=== PATIENT | female | born 1930 | race Caucasian/White ===

== ENCOUNTER 2017-03-17 15:16 | Inpatient (IN) ==
[2017-03-17] MEDS ORDERED: Piperacillin/Tazobactam 3.375 GM in Water for inj. (sterile) 20 ML IVP ONE (15:29)
[2017-03-17 16:42] LABS: Basophils % 0.6 %; Eosinophils # 0.1 K/mcL (0.0-0.6); Eosinophils % 1.5 %; Hematocrit 43.3 % (35.3-44.9); Hemoglobin 12.8 g/dL (11.5-15.4); Immature Granulocytes % 1.3 % (0-4); Lymphocytes # 2.5 K/mcL (0.6-4.6); Lymphocytes % 36.2 %; Mean Corpuscular HGB Conc 29.6 g/dL (31.6-35.5); Mean Corpuscular Hemoglobin 29.3 pg (28.0-33.3); Mean Corpuscular Volume 99.1 fL (83.0-100.0); Mean Platelet Volume 10.9 fL (9.4-12.4); Monocytes # 0.6 K/mcL (0.0-1.3); Neutrophils # 3.6 K/mcL (1.6-8.9); Platelet Count 241 K/mcL (140-400); Red Blood Count 4.37 M/mcL (3.82-4.97); Segmented Neutrophils % 52.4 %
[2017-03-17 17:07] LABS: Calcium 9.4 mg/dL (8.6-10.3); Potassium 3.9 mEq/L (3.5-5.1)
[2017-03-17 17:16] LABS: Bilirubin,Urine Negative (Negative); Blood,Urine Large (Negative); Clarity,Urine Turbid (Clear); Color,Urine Yellow (Yellow); Glucose,Urine (UA) Normal (Normal); Ketones,Urine Negative (Negative); Leukocyte Esterase,Urine Large (Negative); Nitrite,Urine Positive (Negative); Protein,Urine 100 mg/dL (Neg-Trace); Specific Gravity,Urine 1.028 (1.010-1.025); Urobilinogen,Urine Normal (Normal)
[2017-03-17 17:17] LABS: Bacteria,Urine Many per hpf (None-Few); Squamous Epithelial Cell,Urine Many per lpf (None-Few); WBC,Urine TNTC per hpf (0-3)
--- NOTE | 2017-03-17 17:23 | Emergency Department Note ---
Disposition Clinical Impression: HCAP (healthcare-associated pneumonia), Hypernatremia, Acute kidney injury, Elevated troponin Urinary tract infection Qualifiers: Urinary tract infection type: acute cystitis Hematuria presence: without hematuria Qualified Code(s): N30.00 - Acute cystitis without hematuria Altered mental status Qualifiers: Altered mental status type: unspecified Qualified Code(s): R41.82 - Altered mental status, unspecified Disposition: Admitted As Inpatient Condition: Fair General Adult HPI - General Chief complaint: ED Shortness of Breath/Dyspnea Stated complaint: PN, UTI, renal failure Time Seen by Provider: 03/17/17 15:29 Source: EMS Limitations: altered mental status, physical limitation Nursing Notes Reviewed: Yes Vital Signs Reviewed: Yes - History of Present Illness HPI Narrative: 87-year-old female past medical history of diabetes, dementia, COPD, coronary arterial disease. She was initially seen a couple [facility] due to increased fatigue and decreased mental status. However she is nonverbal at baseline that she was sleeping more than usual. She was sent to the emergency department because she has acute worsening of her creatinine along with hypernatremia and a urinary tract infection. The patient is unable to provide any past medical history due to significant dementia. Pain Scale: 0 Improves with: nothing Worsens with: nothing - Related Data Home Medications Medication Instructions Recorded Confirmed Acetaminophen [Tylenol] 650 mg PO Q6HR PRN 10/01/15 03/17/17 Aspirin 81 mg PO DAILY 10/01/15 03/17/17 Ranitidine HCl [Zantac] 150 mg PO BID 10/11/15 03/17/17 Bisacodyl [Dulcolax] 10 mg RC HS PRN 05/13/16 03/17/17 Fluticasone/Salmeterol [Advair 1 each IH BID 05/13/16 03/17/17 250-50 Diskus] Furosemide [Lasix] 40 mg PO DAILY 05/13/16 03/17/17 Insulin ASPART [Novolog] 12 unit SQ 1700 05/13/16 03/17/17 Insulin DETEMIR [Levemir] 20 unit SQ HS 05/13/16 03/17/17 Magnesium Hydroxide [Milk of 2,400 mg PO DAILY PRN 05/13/16 03/17/17 Magnesia] Acetaminophen [Tylenol] 650 mg PO 0700,1300,1900 01/19/18 01/19/18 Carvedilol [Coreg] 6.25 mg PO BIDWM 03/17/17 03/17/17 Insulin ASPART [NovoLOG] 15 unit SQ 0800,1200 03/17/17 03/17/17 Multivitamin [One Daily 1 each PO DAILY 03/17/17 03/17/17 Multivitamin] Oseltamivir [Tamiflu] 75 mg PO DAILY 03/17/17 03/17/17 Polyethylene Glycol 3350 [MiraLAX] 17 gm PO DAILY 03/17/17 03/17/17 Promethazine HCl 12.5 mg PO 1200 03/17/17 03/17/17 Previous Rx's Medication Instructions Recorded Atorvastatin [Lipitor] 10 mg PO HS tablet 01/28/15 Folic Acid 1 mg PO DAILY tablet 01/28/15 Allergies Allergy/AdvReac Type Severity Reaction Status Date / Time No Known Allergies Allergy Verified 03/17/17 15:18 Limitations: ROS unobtainable due to patients medical condition Past Medical History - Past Medical History Medical history: Reports: COPD, coronary artery disease, dementia, diabetes, hyperlipidemia, hypertension, other Surgical history: Reports: carotid endarterectomy, coronary bypass (CABG), other Psychiatric history: Reports: no psych history SAIL FINISHER HAND history: Reports: no SAIL FINISHER HAND history - Social History Smoking Status: Never smoker Smokeless Tobacco Status: No Alcohol use: Reports: none Drug use: Reports: none Physical Exam - General Limitations: altered mental status, physical limitation General appearance: lethargic - Head Head exam: atraumatic - Eye Eye exam: Present: normal appearance - ENT ENT exam: normal exam - Neck Neck exam: Present: normal inspection - Chest Chest inspection: Present: normal inspection - Respiratory Respiratory exam: Present: other (Course lung sounds bilaterally without respiratory distress. No accessory muscle use.) - Cardiovascular Cardiovascular exam: Present: regular rate, normal rhythm - Abdominal Exam Abdominal exam: Present: soft, Non-Tender - Extremities Exam Extremities exam: Present: normal inspection - Neurological Exam Neurological exam: Present: other (Sleepy but arousable. Nonverbal) - Skin Skin exam: Present: warm, dry Course Course Narrative: Her sodium level is elevated has been elevating over the last 2 days as seen by prior lab work. In addition her urine is concentrated so the elevated sodium is likely due to inadequate input. Her daughter also says that she has not been eating or drinking. She does not appear to be markedly hypovolemic as she is not tachycardic or hypotensive. Urinalysis shows urinary tract infection. Abdomen is soft and nontender. EKG shows normal sinus rhythm without any new EKG changes. However her troponin is elevated which is likely secondary to her acute renal failure however this will all need to be trended. She has received linezolid and Zosyn for likely healthcare associated pneumonia and urinary tract infection. She was also started on half-normal saline to help correct her renal failure and also provide some free water for her hypernatremia. She is requiring 2L NC O2. She is not on that at the nursing facility. culture from urinalysis shows sensitivity to zosyn. Chose zosyn to cover both HCAP and UTI, along with linezolid. No EKG changes with elevated troponin. Gave aspirin Vital Signs Temperature 98.1 F 03/17/17 15:28 Pulse Rate 73 03/17/17 15:28 Respiratory Rate 12 03/17/17 15:28 Blood Pressure 185/75 03/17/17 15:28 O2 Sat by Pulse Oximetry 98 03/17/17 15:28 Temperature 97.7 F 03/17/17 22:05 Pulse Rate 55 03/17/17 22:05 Respiratory Rate 15 03/17/17 22:05 Blood Pressure 182/68 03/17/17 22:05 O2 Sat by Pulse Oximetry 99 03/17/17 22:05 Oxygen Delivery Oxygen Delivery Nasal Cannula Medical Decision Making - Medical Records Medical records reviewed: Yes I reviewed the patient's medical records. - Lab Data Lab results reviewed: Yes I reviewed the patient's lab results. Result diagrams: 03/17/17 16:26 03/17/17 16:26 Lab Results 03/17/17 03/17/17 03/17/17 Range/Units 16:26 16:26 16:26 WBC 6.9 (4.3-11.1) K/mcL RBC 4.37 (3.82-4.97) M/mcL Hgb 12.8 (11.5-15.4) g/dL Hct 43.3 (35.3-44.9) % MCV 99.1 (83.0-100.0) fL MCH 29.3 (28.0-33.3) pg MCHC 29.6 L (31.6-35.5) g/dL RDW 14.0 (11.5-14.5) % Plt Count 241 (140-400) K/mcL MPV 10.9 (9.4-12.4) fL Immature Gran % 1.3 (0-4) % Seg Neutrophils % 52.4 % Lymphocytes % 36.2 % Monocytes % 8.0 % Eosinophils % 1.5 % Basophils % 0.6 % Neutrophils # 3.6 (1.6-8.9) K/mcL Lymphocytes # 2.5 (0.6-4.6) K/mcL Monocytes # 0.6 (0.0-1.3) K/mcL Eosinophils # 0.1 (0.0-0.6) K/mcL Basophils # 0.0 (0.0-0.2) K/mcL Sodium 158 H (136-145) mEq/L Potassium 3.9 (3.5-5.1) mEq/L Chloride 119 H (98-107) mEq/L Carbon Dioxide 32 H (23-29) mEq/L BUN 66 H (8-23) mg/dL Creatinine 2.09 H (0.60-1.20) mg/dL Est GFR ( Amer) 27 L (> 60) Est GFR (Non-Af Amer) 23 L (> 60) BUN/Creatinine Ratio 32 H (6-26) Glucose 118 H (70-105) mg/dL Calculated Osmolality 346 H (280-300) Lactic Acid 0.8 (0.5-2.2) mmol/L Calcium 9.4 (8.6-10.3) mg/dL Troponin I (< 0.04) ng/mL B-Natriuretic Peptide (Less than 100) pg/mL Urine Color (Yellow) Urine Clarity (Clear) Urine pH (5.0-8.0) pH Units Ur Specific [place] (1.010-1.025) Urine Protein (Neg-Trace) mg/dL Urine Glucose (UA) (Normal) mg/dL Urine Ketones (Negative) mg/dL Urine Blood (Negative) Urine Nitrite (Negative) Urine Bilirubin (Negative) Urine Urobilinogen (Normal) mg/dL Ur Leukocyte Esterase (Negative) Urine Microscopic RBC (0-3) per hpf Urine Microscopic WBC (0-3) per hpf Ur Squamous Epith Cells (None-Few) per lpf Urine Bacteria (None-Few) per hpf Ur Culture Indicated? (NO) Urine Osmolality (300-1090) mOsm/kg Urine Sodium mEq/L 03/17/17 03/17/17 03/17/17 Range/Units 16:26 16:26 16:37 WBC (4.3-11.1) K/mcL RBC (3.82-4.97) M/mcL Hgb (11.5-15.4) g/dL Hct (35.3-44.9) % MCV (83.0-100.0) fL MCH (28.0-33.3) pg MCHC (31.6-35.5) g/dL RDW (11.5-14.5) % Plt Count (140-400) K/mcL MPV (9.4-12.4) fL Immature Gran % (0-4) % Seg Neutrophils % % Lymphocytes % % Monocytes % % Eosinophils % % Basophils % % Neutrophils # (1.6-8.9) K/mcL Lymphocytes # (0.6-4.6) K/mcL Monocytes # (0.0-1.3) K/mcL Eosinophils # (0.0-0.6) K/mcL Basophils # (0.0-0.2) K/mcL Sodium (136-145) mEq/L Potassium (3.5-5.1) mEq/L Chloride (98-107) mEq/L Carbon Dioxide (23-29) mEq/L BUN (8-23) mg/dL Creatinine (0.60-1.20) mg/dL Est GFR ( Amer) (> 60) Est GFR (Non-Af Amer) (> 60) BUN/Creatinine Ratio (6-26) Glucose (70-105) mg/dL Calculated Osmolality (280-300) Lactic Acid (0.5-2.2) mmol/L Calcium (8.6-10.3) mg/dL Troponin I 0.16 H* (< 0.04) ng/mL B-Natriuretic Peptide 117 H (Less than 100) pg/mL Urine Color Yellow (Yellow) Urine Clarity Turbid A (Clear) Urine pH 5.0 (5.0-8.0) pH Units Ur Specific [place] 1.028 H (1.010-1.025) Urine Protein 100 H (Neg-Trace) mg/dL Urine Glucose (UA) Normal (Normal) mg/dL Urine Ketones Negative (Negative) mg/dL Urine Blood Large H (Negative) Urine Nitrite Positive A (Negative) Urine Bilirubin Negative (Negative) Urine Urobilinogen Normal (Normal) mg/dL Ur Leukocyte Esterase Large H (Negative) Urine Microscopic RBC 5-15 H (0-3) per hpf Urine Microscopic WBC TNTC H (0-3) per hpf Ur Squamous Epith Cells Many H (None-Few) per lpf Urine Bacteria Many H (None-Few) per hpf Ur Culture Indicated? NO. (NO) Urine Osmolality (300-1090) mOsm/kg Urine Sodium mEq/L 03/17/17 Range/Units 16:37 WBC (4.3-11.1) K/mcL RBC (3.82-4.97) M/mcL Hgb (11.5-15.4) g/dL Hct (35.3-44.9) % MCV (83.0-100.0) fL MCH (28.0-33.3) pg MCHC (31.6-35.5) g/dL RDW (11.5-14.5) % Plt Count (140-400) K/mcL MPV (9.4-12.4) fL Immature Gran % (0-4) % Seg Neutrophils % % Lymphocytes % % Monocytes % % Eosinophils % % Basophils % % Neutrophils # (1.6-8.9) K/mcL Lymphocytes # (0.6-4.6) K/mcL Monocytes # (0.0-1.3) K/mcL Eosinophils # (0.0-0.6) K/mcL Basophils # (0.0-0.2) K/mcL Sodium (136-145) mEq/L Potassium (3.5-5.1) mEq/L Chloride (98-107) mEq/L Carbon Dioxide (23-29) mEq/L BUN (8-23) mg/dL Creatinine (0.60-1.20) mg/dL Est GFR ( Amer) (> 60) Est GFR (Non-Af Amer) (> 60) BUN/Creatinine Ratio (6-26) Glucose (70-105) mg/dL Calculated Osmolality (280-300) Lactic Acid (0.5-2.2) mmol/L Calcium (8.6-10.3) mg/dL Troponin I (< 0.04) ng/mL B-Natriuretic Peptide (Less than 100) pg/mL Urine Color (Yellow) Urine Clarity (Clear) Urine pH (5.0-8.0) pH Units Ur Specific [place] (1.010-1.025) Urine Protein (Neg-Trace) mg/dL Urine Glucose (UA) (Normal) mg/dL Urine Ketones (Negative) mg/dL Urine Blood (Negative) Urine Nitrite (Negative) Urine Bilirubin (Negative) Urine Urobilinogen (Normal) mg/dL Ur Leukocyte Esterase (Negative) Urine Microscopic RBC (0-3) per hpf Urine Microscopic WBC (0-3) per hpf Ur Squamous Epith Cells (None-Few) per lpf Urine Bacteria (None-Few) per hpf Ur Culture Indicated? (NO) Urine Osmolality 531 (300-1090) mOsm/kg Urine Sodium 35.2 mEq/L - Radiology Data Radiology results reviewed: Yes I reviewed the patient's radiology results. - EKG Data EKG #1 EKG attestation: Yes I reviewed and interpreted this EKG. EKG shows normal: sinus rhythm Rate: normal Rhythm: NSR Interpretation: unchanged when compared to prior tracing (date), nonspecific ST- T wave changes Attestation Statement - Attestation Attestation: I, Hussain Ray, examined this patient and my medical decision-making was reviewed with the OIL RECOVERY OPERATOR/PA/Advanced Practice Nurse/Resident Physician. I agree with the documented findings, disposition and treatment plan as described except to the extent set forth below. 87-year-old female presents emergency Department with concerns of altered mental status, urinary tract infection and possible pneumonia. Patient is from a long-term facility who noticed that she was not as interactive as her baseline. Family states that this often happens with urinary tract infections. Laboratory evaluation patient has hypernatremia which is likely secondary to volume depletion. Patient has a urinary tract infection as well as a possible pneumonia. She was started on Zosyn as well as Linezolid for treatment of pneumonia and UTI. Patient will be admitted to the hospital for further care and evaluation.
[2017-03-17] MEDS ORDERED: Aspirin 325 MG TABLET PO ONE (17:57)
[2017-03-17 18:18] LABS: Sodium, Urine 35.2 mEq/L
[2017-03-17] MEDS ORDERED: *HR* Labetalol 100 MG/20 ML MDV IVP ONE (19:45)
[2017-03-18] MEDS ORDERED: Naloxone 0.4 MG/ML INJ IVP PRN (05:02)
[2017-03-18 05:31] LABS: Basophils % 0.5 %; Eosinophils # 0.1 K/mcL (0.0-0.6); Hematocrit 35.7 % (35.3-44.9); Hemoglobin 10.8 g/dL (11.5-15.4); Immature Granulocytes % 1.2 % (0-4); Lymphocytes # 2.3 K/mcL (0.6-4.6); Mean Corpuscular HGB Conc 30.3 g/dL (31.6-35.5); Mean Corpuscular Hemoglobin 29.9 pg (28.0-33.3); Mean Corpuscular Volume 98.9 fL (83.0-100.0); Monocytes # 0.6 K/mcL (0.0-1.3); Monocytes % 8.5 %; Neutrophils # 3.4 K/mcL (1.6-8.9); Platelet Count 190 K/mcL (140-400); Red Blood Count 3.61 M/mcL (3.82-4.97); Red Cell Distribution Width 14.1 % (11.5-14.5); Segmented Neutrophils % 52.8 %
[2017-03-18 05:45] LABS: Albumin 3.3 g/dL (3.5-5.7); Albumin/Globulin Ratio 1.1 (1.1-2.2); Bilirubin,Total 0.3 mg/dL (0.3-1.0); Calcium 8.4 mg/dL (8.6-10.3); Globulin 3.1 g/dL (2.4-3.5); Potassium 4.2 mEq/L (3.5-5.1); Total Protein 6.4 g/dL (6.4-8.9)
[2017-03-18] MEDS ORDERED: *HR* Morphine 2 MG/ML SYRINGE IVP PRN (08:20)
[2017-03-18] MEDS ORDERED: Piperacillin/Tazobactam 3.375 GM/200 ML BAG IVPB SCH (09:00)
--- NOTE | 2017-03-18 09:09 | Internal Med History&Physical ---
Date of Encounter: 03/18/17 Time of Encounter: 09:07 Assessment and Plan (1) Metabolic encephalopathy Current visit: Yes Status: Acute Due to hypernatremia and underlying infections in the setting of proable underlying dementia (2) UTI (urinary tract infection) Current visit: Yes Status: Acute Has recent urine culture phone E. coli sensitive to Zosyn which will be started on Qualifiers: Qualified Code(s): N39.0 - Urinary tract infection, site not specified; R31.9 - Hematuria, unspecified; R31.9 - Hematuria, unspecified (3) Hypernatremia Current visit: Yes Status: Acute Hypernatremia due to decreased free water intake. Patient was started yesterday on half normal saline. Sodium is 153 from 158 after 12 hours. We will switch fluids to D5 water. Continue checking sodium every 6 hours. Once the patient passes swallow eval will give Freewater 200 mL every 8 hours (4) HCAP (healthcare-associated pneumonia) Current visit: Yes Status: Acute Likely due to aspiration. Start Zosyn. patient is afebrile without leukocytosis. She is not hypotensive. with worsening of her hemodynamics we will add vancomycin. Otherwise await cultures (5) NATHALY (acute kidney injury) Current visit: Yes Status: Acute Improving. Monitor urine output Internal Medicine - H&P: HPI Chief complaint: Altered mental status History of present illness: Ms. Howard is a 87 year old female NH patient was initially seen a couple days ago by the physician at the senior living due to lethargy and altered mental status and that she was sleeping more than usual. She was sent to the emergency department because she has acute worsening of her creatinine along with hypernatremia and a urinary tract infection. The patient is unable to provide any further history because of advanced dementia. Past Med Surg Social Fam HX - Past Medical History Medical history: COPD, coronary artery disease, dementia, diabetes, hyperlipidemia, hypertension, other Psychiatric history: no psych history - Past Surgical History Surgical History: carotid endarterectomy, coronary bypass (CABG), other - Social History Smoking Status: Never smoker Smokeless Tobacco Status: No Alcohol use: none Drug use: none - Family History Mother Hx Family Cancer: Yes Internal Medicine - H&P: Meds Atorvastatin [Lipitor] 10 mg PO HS tablet 01/28/15 [Rx] Folic Acid 1 mg PO DAILY tablet 01/28/15 [Rx] Acetaminophen [Tylenol] 650 mg PO Q6HR PRN 10/01/15 [History] Aspirin 81 mg PO DAILY 10/01/15 [History] Ranitidine HCl [Zantac] 150 mg PO BID 10/11/15 [History] Bisacodyl [Dulcolax] 10 mg RC HS PRN 05/13/16 [History] Fluticasone/Salmeterol [Advair 250-50 Diskus] 1 each IH BID 05/13/16 [History] Furosemide [Lasix] 40 mg PO DAILY 05/13/16 [History] Insulin ASPART [Novolog] 12 unit SQ 1700 05/13/16 [History] Insulin DETEMIR [Levemir] 20 unit SQ HS 05/13/16 [History] Magnesium Hydroxide [Milk of Magnesia] 2,400 mg PO DAILY PRN 05/13/16 [History] Acetaminophen [Tylenol] 650 mg PO 0700,1300,1900 03/17/17 [History] Carvedilol [Coreg] 6.25 mg PO BIDWM 03/17/17 [History] Insulin ASPART [NovoLOG] 15 unit SQ 0800,1200 03/17/17 [History] Multivitamin [One Daily Multivitamin] 1 each PO DAILY 03/17/17 [History] Oseltamivir [Tamiflu] 75 mg PO DAILY 03/17/17 [History] Polyethylene Glycol 3350 [MiraLAX] 17 gm PO DAILY 03/17/17 [History] Promethazine HCl 12.5 mg PO 1200 03/17/17 [History] 3 Allergy/AdvReac Type Severity Reaction Status Date / Time No Known Allergies Allergy Verified 03/17/17 15:18 All Systems PM: A 10-system review of systems was performed and is negative for pertinent findings except as documented above in the HPI. Review of systems: 10 point review of systems is negative except for HPI - Constitutional Vitals: Temp Pulse Resp BP Pulse Ox 97.3 F L 63 15 187/57 99 03/18/17 07:22 03/18/17 07:22 03/18/17 07:22 03/18/17 07:22 03/18/17 07:22 Exam: Gen.: patient is alert non communicative Cardiac: normal S1 S2 no additional sounds are murmurs. Chest: decreased air entry in bases Abdomen: soft nontender nondistended. Lower extremity no swelling Neuro: patient uncooperative with exam Internal Med - H&P Results - Labs CBC & Chem 7: 03/18/17 05:24 03/18/17 05:24 Labs: Short CBC 03/18/17 Range/Units 05:24 WBC 6.5 (4.3-11.1) K/mcL Hgb 10.8 L D (11.5-15.4) g/dL Hct 35.7 (35.3-44.9) % Plt Count 190 (140-400) K/mcL Neutrophils # 3.4 (1.6-8.9) K/mcL BMP 03/18/17 05:24 Sodium 153 H Potassium 4.2 Chloride 118 H Carbon Dioxide 30 H BUN 59 H Creatinine 1.86 H Glucose 167 H Calcium 8.4 L Cardiac Enzymes 03/18/17 03/18/17 Range/Units 00:06 05:24 Troponin I 0.14 H* 0.15 H* (< 0.04) ng/mL Liver Function 03/18/17 Range/Units 05:24 Total Bilirubin 0.3 (0.3-1.0) mg/dL AST 14 (13-39) Units/L ALT 7 (7-52) Units/L Alkaline Phosphatase 60 (34-104) Units/L Albumin 3.3 L (3.5-5.7) g/dL
[2017-03-18] MEDS: D5% in Water 1,000 ML IVC SCH ×2 (09:55→18:16)
[2017-03-18] MEDS: Aspirin 81 MG TAB.CHEW PO SCH (09:55)
[2017-03-18] MEDS ORDERED: D5% in Water 1,000 ML IVC PRN (11:02)
[2017-03-18] MEDS ORDERED: *HR* Dextrose 50 % in Water (Syg) 50 ML SYRINGE IVP PRN (11:02)
[2017-03-18] MEDS ORDERED: Dextrose Gel 15 GM/37.5 ML TUBE PO PRN ×2 (11:02)
[2017-03-18] MEDS: Insulin LISPRO 300 UNITS/3 ML VIAL SQ SCH ×3 (12:44→21:19)
[2017-03-18] MEDS ORDERED: *HR* LORazepam 2 MG/ML VIAL IM STA (13:07)
[2017-03-18] MEDS: *HR* Heparin 5,000 UNIT/ML VIAL SQ SCH ×2 (13:16→21:23)
[2017-03-18] MEDS ORDERED: Furosemide 40 MG/4 ML VIAL IVP ONE (13:27)
[2017-03-18 14:58] LABS: Adenovirus Not Detected (Not Detect); Bordetella Pertussis Not Detected (Not Detect); Chlamydophila pneumoniae Not Detected (Not Detect); Coronavirus 229E Not Detected (Not Detect); Coronavirus HKU1 Not Detected (Not Detect); Coronavirus NL63 Not Detected (Not Detect); Coronavirus OC43 Not Detected (Not Detect); Human Metapneumovirus Not Detected (Not Detect); Human Rhinovirus/Enterovirus Not Detected (Not Detect); Influenza A Subtype 2009 H1 Not Detected (Not Detect); Influenza A Untypeable Not Detected (Not Detect); Influenza B Not Detected (Not Detect); Mycoplasma pneumoniae Not Detected (Not Detect); Parainfluenza Virus 1 Not Detected (Not Detect); Parainfluenza Virus 2 Not Detected (Not Detect); Parainfluenza Virus 3 Not Detected (Not Detect); Parainfluenza Virus 4 Not Detected (Not Detect); Respiratory Syncytial Virus Not Detected (Not Detect)
[2017-03-18] MEDS ORDERED: *HR* LORazepam 2 MG/ML VIAL IVP PRN (17:14)
[2017-03-18] MEDS: Famotidine 20 MG/2 ML VIAL IVP SCH (18:15)
[2017-03-18] MEDS: Piperacillin/Tazobactam 3.375 GM/200 ML BAG IVPB SCH (21:06)
[2017-03-19] MEDS: D5% in Water 1,000 ML IVC SCH (02:12)
[2017-03-19 03:46] LABS: Basophils # 0.1 K/mcL (0.0-0.2); Basophils % 0.6 %; Eosinophils # 0.2 K/mcL (0.0-0.6); Eosinophils % 2.2 %; Hematocrit 37.3 % (35.3-44.9); Hemoglobin 11.4 g/dL (11.5-15.4); Immature Granulocytes % 3.6 % (0-4); Lymphocytes % 35.6 %; Mean Corpuscular HGB Conc 30.6 g/dL (31.6-35.5); Mean Corpuscular Hemoglobin 29.2 pg (28.0-33.3); Mean Corpuscular Volume 95.4 fL (83.0-100.0); Mean Platelet Volume 11.1 fL (9.4-12.4); Monocytes # 0.7 K/mcL (0.0-1.3); Monocytes % 7.9 %; Neutrophils # 4.2 K/mcL (1.6-8.9); Platelet Count 221 K/mcL (140-400); Red Blood Count 3.91 M/mcL (3.82-4.97); Red Cell Distribution Width 14.1 % (11.5-14.5); Segmented Neutrophils % 50.1 %
[2017-03-19 04:09] LABS: Calcium 7.8 mg/dL (8.6-10.3); Magnesium 1.8 mg/dL (1.6-2.6); Potassium 4.2 mEq/L (3.5-5.1)
--- NOTE | 2017-03-19 06:20 | Event Note ---
<Frank Hernandez - Last Filed: 03/19/17 06:47> Date of Encounter: 03/19/17 Time of Encounter: 06:16 I was called by the floor nurse about this patient due to increased somnolence and difficulty to arouse. The patient was admitted with metabolic encephalopathy with UTI and is flu positive. The nurse said that it's been worsening throughout the night, and now she is very challenging to arouse altogether. She awakens only to painful stimuli, and is oriented to self but not place or time. She stays alert long enough to answer one question and then becomes unconscious again. Blood glucose was 283, vitals stable, got stat VBG + BMP. Stat EKG showed no acute changes. I also ordered a head CT as the patient has not had a scan in two years and is encephalopathic. VBG demonstrates pH 7.2 + pCO2 91. Order for BiPAP is placed. CT Pending. Pertinent info is signed out to the day team for urgent follow up. <Sandip Garcia - Last Filed: 03/19/17 19:09> Date of Encounter: 03/19/[address] Hernandez his assessment, plan, lab results, and Bipap plans. I requested he order another ABG in 1 -2 hours after BiPap . I agree with his plan.
[2017-03-19 06:37] LABS: VBG HCO3 36 mEq/L (21-27); VBG PCO2 91 mmHg (41-51); VBG PO2 47 mmHg (25-50)
[2017-03-19 06:41] LABS: Calcium 8.1 mg/dL (8.6-10.3); Potassium 3.7 mEq/L (3.5-5.1)
[2017-03-19] MEDS: Insulin LISPRO 300 UNITS/3 ML VIAL SQ SCH ×4 (07:34→21:25)
[2017-03-19] MEDS: Piperacillin/Tazobactam 3.375 GM/200 ML BAG IVPB SCH (07:34)
[2017-03-19] MEDS: Famotidine 20 MG/2 ML VIAL IVP SCH ×2 (07:35→16:57)
[2017-03-19] MEDS: *HR* Heparin 5,000 UNIT/ML VIAL SQ SCH ×3 (07:35→21:33)
[2017-03-19] MEDS: Aspirin 81 MG TAB.CHEW PO SCH (07:48)
[2017-03-19 10:10] LABS: VBG HCO3 32 mEq/L (21-27); VBG PCO2 58 mmHg (41-51); VBG PH 7.35 pH Units (7.32-7.42); VBG PO2 148 mmHg (25-50)
--- NOTE | 2017-03-19 12:22 | Internal Med Progress Note ---
<Rosy Slaughter - Last Filed: 03/19/17 16:09> Date of Encounter: 03/19/17 Time of Encounter: 12:00 - Assessment and plan (1) HCAP (healthcare-associated pneumonia) Current Visit: Yes Status: Acute Assessment and plan: Healthcare associated pneumonia. Patient presented from [facility]. CXR demonstrated small left pleural effusion, mild diffuse bilateral interstitial opacities that may be atypical pneumonia or edema WBC WNL patient reports shortness of breath and productive cough Stop Zosyn start azithromycin and Rocephin supplemental oxygen is needed (2) UTI (urinary tract infection) Current Visit: Yes Status: Acute Assessment and plan: Urine culture 03/14/2017 grew E. coli sensitive to ceftriaxone Urinalysis: nitrite and esterase positive patient denies dysuria and hematuria plan start Rocephin day 1 Zosyn stopped Qualifiers: Urinary tract infection type: acute cystitis Hematuria presence: without hematuria Qualified Code(s): N30.00 - Acute cystitis without hematuria (3) Influenza A Current Visit: Yes Status: Acute Assessment and plan: The patient is a resident of [facility] and was prophylactically started on Tamiflu at [facility] due to multiple residents in her [place] testing positive for influenza. Influenza A positive Continue Tamiflu supplemental oxygen is needed (4) Metabolic encephalopathy Current Visit: Yes Status: Acute Assessment and plan: Patient is now alert and oriented x2 (person in place) Daughter is at bedside and stated that she is normally able to converse more. Patient admitted with metabolic encephalopathy thought to be induced by UTI, pneumonia, and hypernatremia superimposed on baseline dementia CXR demonstrated small left pleural effusion, mild diffuse bilateral interstitial opacities that may be atypical pneumonia or edema WBC WNL sodium was 158 [address] demonstrated no acute cranial abnormality blood cultures are negative to date Urinalysis: nitrite and esterase positive see plan above (5) Acute kidney injury Current Visit: Yes Status: Acute Assessment and plan: Patient presented with NATHALY most likely due to dehydration from decreased oral intake. Patient has CKD creatinine baseline 1.3- 1.5 Creatinine improved 1.58 Avoid nephrotoxic agents monitor creatinine patients received IVF encourage oral hydration (6) COPD (chronic obstructive pulmonary disease) Current Visit: No Status: Chronic Assessment and plan: History of COPD. Not in exacerbation 98% oxygen saturation on 4 L continue home Symbicort supplemental oxygen is needed Duonebs every 4 hours Qualifiers: COPD type: unspecified COPD Qualified Code(s): J44.9 - Chronic obstructive pulmonary disease, unspecified (7) Diabetes Current Visit: No Status: Acute Assessment and plan: History of diabetes taking insulin glucose 295 Levemir 10 units HS low-dose sliding scale insulin HS medium dose sliding scale insulin TIDAC glucose checks ACHS Qualifiers: Diabetes mellitus type: type 2 Diabetes mellitus complication status: without complication Diabetes mellitus penitentiary insulin use: with dedicated intermodal truck driver use Qualified Code(s): E11.9 - Type 2 diabetes mellitus without complications ; Z79.4 - emt intermediate (current) use of insulin; Z79.4 - emt intermediate (current) use of insulin; Z79.4 - emt intermediate (current) use of insulin; Z79.4 - retirement ( current) use of insulin (8) HTN (hypertension) Current Visit: No Status: Acute Assessment and plan: History of hypertension. BP 158/75 RALES on physical exam continue Coreg continue Lasix 20mg Qualifiers: Hypertension type: essential hypertension Qualified Code(s): I10 - Essential (primary) hypertension (9) Dementia Current Visit: No Status: Acute Assessment and plan: According to her family she has Dementia not currently taking medication for it. Ashlee reports that at baseline patient is able to recognize family and have conversations however she does forget each visit at the next visit. Qualifiers: Dementia type: unspecified type Dementia behavioral disturbance: without behavioral disturbance Qualified Code(s): F03.90 - Unspecified dementia without behavioral disturbance (10) DVT prophylaxis Current Visit: No Status: Acute Assessment and plan: Heparin sq - Subjective Interval history: She is alert and oriented x2 (person and place), her daughter and son in law is at bedside. The patient denies shortness of breathe, chest pain, dysuria, hematuria. She admits productive cough. - Constitutional Vitals: Temp Pulse Resp BP Pulse Ox 98.2 F 88 21 158/75 98 03/19/17 11:00 03/19/17 11:00 03/19/17 11:00 03/19/17 11:00 03/19/17 11:00 Exam: Gen.: Vitals noted. No acute distress. AAOx2 HEENT: oropharynx clear, Normocephalic, atraumatic Neck: Supple. No adenopathy. Cardiac: RRR, no murmur, +S1/S2 Pulmonary: CTA bilaterally, minimal apical wheezes, positive bilateral rales , equal chest expansion Abdomen: soft, nontender, Bowel sounds noted, no guarding MSK: ROM intact, no joint swelling noted Extremities: no BLE edema, nontender calf, no cyanosis or clubbing Neuro: A&Ox2 r Internal Medicine: Result - Labs CBC & Chem 7: 03/19/17 03:38 03/19/17 06:21 Labs: Short CBC 03/19/17 Range/Units 03:38 WBC 8.4 (4.3-11.1) K/mcL Hgb 11.4 L (11.5-15.4) g/dL Hct 37.3 (35.3-44.9) % Plt Count 221 (140-400) K/mcL Neutrophils # 4.2 (1.6-8.9) K/mcL BMP 03/18/17 03/18/17 03/19/17 15:15 20:23 03:38 Sodium 150 H 147 H 144 Potassium 4.2 Chloride 106 Carbon Dioxide 26 BUN 42 H Creatinine 1.53 H Glucose 292 H Calcium 7.8 L 03/19/17 06:21 Sodium 145 Potassium 3.7 Chloride 107 Carbon Dioxide 33 H BUN 39 H Creatinine 1.58 H Glucose 295 H Calcium 8.1 L - Impressions Impressions Head CT 03/19/17 06:11 IMPRESSION: No evidence of acute intracranial abnormality. D/ / 03/19/2017 08:33:59 Tristin Gaxiola MD / Arabella Toussaint Interpreting Provider: Tristin Gaxiola MD Consult Discharge Plan - Plan Referrals: NONE,PCP [Primary Care Provider] - <Ady Caceres - Last Filed: 03/20/17 22:17> Date of Encounter: 03/19/17 - Constitutional Vitals: Temp Pulse Resp BP Pulse Ox 98.6 F 97 22 151/60 98 03/20/17 21:12 03/20/17 21:12 03/20/17 21:12 03/20/17 21:12 03/20/17 21:12 Internal Medicine: Result - Labs CBC & Chem 7: 03/20/17 06:03 03/20/17 06:03 Labs: Short CBC 03/20/17 Range/Units 06:03 WBC 7.6 (4.3-11.1) K/mcL Hgb 12.8 (11.5-15.4) g/dL Hct 39.4 (35.3-44.9) % Plt Count 261 (140-400) K/mcL Neutrophils # 4.6 (1.6-8.9) K/mcL BMP 03/20/17 06:03 Sodium 148 H Potassium 3.4 L Chloride 108 H Carbon Dioxide 28 BUN 28 H Creatinine 1.31 H Glucose 188 H Calcium 8.7 - Impressions Impressions Head CT 03/19/17 06:11 IMPRESSION: No evidence of acute intracranial abnormality. D/ / 03/19/2017 08:33:59 Tristin Gaxiola MD / Arabella Toussaint Interpreting Provider: Tristin Gaxiola MD - Attending Attestation I conducted a face to face diagnostic evaluation of this patient and my medical decision-making was reviewed with the Resident Physician, Dr Rosy Slaughter. I agree with the documented findings, disposition and treatment plan as described except to the extent set forth below: On exam the patient is asleep, arousable, confused. Heart is regular. Lungs are diminished throughout. Switch to ceftriaxone and azithromycin. Continue with Tamiflu. Ady Caceres MD
[2017-03-19] MEDS ORDERED: Ketorolac 15 MG/ML VIAL IM PRN (12:37)
[2017-03-19] MEDS: cefTRIAXone 1,000 MG in Water for inj. (sterile) 20 ML 10 ML IVP SCH (13:11)
[2017-03-19] MEDS: Azithromycin 500 MG in D5% in Water 250 ML IVPB SCH (13:20)
[2017-03-19] MEDS ORDERED: Ketorolac 15 MG/ML VIAL IVP PRN (13:37)
[2017-03-19] MEDS: Ipratropium/Albuterol Neb 3 ML IH SCH ×3 (16:24→23:47)
[2017-03-19] MEDS: Budesonide/Formoterol 80/4.5 MDI IH SCH (19:53)
[2017-03-19] MEDS: Insulin DETEMIR 100 UNIT/ML X5UNITS SQ SCH (21:33)
[2017-03-20] MEDS: Ipratropium/Albuterol Neb 3 ML IH SCH ×6 (03:14→23:40)
[2017-03-20 06:24] LABS: Basophils # 0.1 K/mcL (0.0-0.2); Basophils % 0.9 %; Eosinophils # 0.2 K/mcL (0.0-0.6); Hematocrit 39.4 % (35.3-44.9); Hemoglobin 12.8 g/dL (11.5-15.4); Immature Granulocytes % 2.6 % (0-4); Lymphocytes # 1.9 K/mcL (0.6-4.6); Lymphocytes % 25.2 %; Mean Corpuscular HGB Conc 32.5 g/dL (31.6-35.5); Mean Corpuscular Hemoglobin 30.1 pg (28.0-33.3); Mean Corpuscular Volume 92.7 fL (83.0-100.0); Monocytes # 0.6 K/mcL (0.0-1.3); Monocytes % 7.8 %; Neutrophils # 4.6 K/mcL (1.6-8.9); Platelet Count 261 K/mcL (140-400); Red Blood Count 4.25 M/mcL (3.82-4.97); Red Cell Distribution Width 13.9 % (11.5-14.5); Segmented Neutrophils % 60.5 %
[2017-03-20 06:47] LABS: Calcium 8.7 mg/dL (8.6-10.3); Potassium 3.4 mEq/L (3.5-5.1)
[2017-03-20] MEDS: Famotidine 20 MG/2 ML VIAL IVP SCH ×2 (07:23→17:41)
[2017-03-20] MEDS: *HR* Heparin 5,000 UNIT/ML VIAL SQ SCH ×3 (07:26→22:05)
[2017-03-20] MEDS: Budesonide/Formoterol 80/4.5 MDI IH SCH ×2 (07:46→20:07)
--- NOTE | 2017-03-20 08:24 | Internal Med Progress Note ---
Addendum entered and electronically signed by Rosy Slaughter DO 03/20/17 13:41: Patient not eating today. So she will not take her Coreg. Will give her Metoprolol 5mg IVq6hr. Holding Coreg today and re-start tomorrow. Original Note: <Rosy Slaughter - Last Filed: 03/20/17 13:09> Date of Encounter: 03/20/17 Time of Encounter: 08:20 - Assessment and plan (1) HCAP (healthcare-associated pneumonia) Current Visit: Yes Status: Acute Assessment and plan: Healthcare associated pneumonia. Patient presented from [facility]. CXR demonstrated small left pleural effusion, mild diffuse bilateral interstitial opacities that may be atypical pneumonia or edema WBC WNL 94% on 2L possible D/C tomorrow Patient on azithromycin and Rocephin. Supplemental oxygen as needed (2) UTI (urinary tract infection) Current Visit: Yes Status: Acute Assessment and plan: Urine culture 03/14/2017 grew E. coli sensitive to ceftriaxone Urinalysis: nitrite and esterase positive Patient on Rocephin Qualifiers: Urinary tract infection type: acute cystitis Hematuria presence: without hematuria Qualified Code(s): N30.00 - Acute cystitis without hematuria (3) Influenza A Current Visit: Yes Status: Acute Assessment and plan: The patient is a resident of [facility] and was prophylactically started on Tamiflu at [facility] due to multiple residents in her [place] testing positive for influenza. Influenza A positive Continue Tamiflu supplemental oxygen is needed (4) Metabolic encephalopathy Current Visit: Yes Status: Acute Assessment and plan: Patient is A&O x0 this morning. Patient admitted with metabolic encephalopathy thought to be induced by UTI, pneumonia, and hypernatremia superimposed on baseline dementia CXR demonstrated small left pleural effusion, mild diffuse bilateral interstitial opacities that may be atypical pneumonia or edema WBC WNL sodium was 158 on admission, and now [address] demonstrated no acute cranial abnormality blood cultures are negative to date Urinalysis: nitrite and esterase positive (5) Acute kidney injury Current Visit: Yes Status: Acute Assessment and plan: Patient presented with NATHALY most likely due to dehydration from decreased oral intake. Patient has CKD creatinine baseline 1.3- 1.5 Creatinine improved 1.31 Avoid nephrotoxic agents monitor creatinine patients received IVF encourage oral hydration (6) COPD (chronic obstructive pulmonary disease) Current Visit: No Status: Chronic Assessment and plan: History of COPD. Not in exacerbation 98% oxygen saturation on 4 L continue home Symbicort supplemental oxygen is needed Duonebs every 4 hours Qualifiers: COPD type: unspecified COPD Qualified Code(s): J44.9 - Chronic obstructive pulmonary disease, unspecified (7) Diabetes Current Visit: No Status: Chronic Assessment and plan: History of diabetes taking insulin glucose 188 Levemir 10 units HS low-dose sliding scale insulin HS low dose sliding scale insulin TIDAC glucose checks ACHS Qualifiers: Diabetes mellitus type: type 2 Diabetes mellitus complication status: without complication Diabetes mellitus pediatric nurse insulin use: with pediatric nurse use Qualified Code(s): E11.9 - Type 2 diabetes mellitus without complications ; Z79.4 - care home (current) use of insulin; Z79.4 - truck and transport mechanic (current) use of insulin; Z79.4 - care home (current) use of insulin; Z79.4 - truck and transport mechanic ( current) use of insulin (8) HTN (hypertension) Current Visit: No Status: Chronic Assessment and plan: History of hypertension. BP 172/88 continue Coreg continue Lasix 20mg Qualifiers: Hypertension type: essential hypertension Qualified Code(s): I10 - Essential (primary) hypertension (9) Dementia Current Visit: No Status: Chronic Assessment and plan: Patient is currently A&O x0, unable to evaluate dementia due to AMS According to her family she has Dementia not currently taking medication for it. Ashlee reports that at baseline patient is able to recognize family and have conversations however she does forget each visit at the next visit. Patient resides in a group home. PT/OT speech recommend pureed foods when patient is wide awake Qualifiers: Dementia type: unspecified type Dementia behavioral disturbance: without behavioral disturbance Qualified Code(s): F03.90 - Unspecified dementia without behavioral disturbance (10) DVT prophylaxis Current Visit: No Status: Acute Assessment and plan: Heparin sq - Subjective Interval history: This morning, patient is laying in bed and is largely unresponsive to verbal stimuli. She does push away when sternal rub is given. Patient will not open her eyes and clamps them down when attempts are made to open them. She does periodically make unintelligible vocalizations. When asked multiple times if she was in any pain, she did eventually respond with a sound that sounded like "no." Otherwise, was not able to illicit any information out of patient. There is currently no family at bedside. - Constitutional Vitals: Temp Pulse Resp BP Pulse Ox 98.3 F 111 18 172/88 92 03/20/17 07:28 03/20/17 07:28 03/20/17 07:53 03/20/17 07:28 03/20/17 07:53 General appearance: Present: A&O X 0. Absent: cooperative, answers questions appropriately - Head Head exam: Present: normal inspection - Respiratory Respiratory exam: Present: CTAB Additional comments: Unable to auscultate lungs fully due to noncooperation by patient - Cardiovascular Cardiovascular exam: Present: RRR - GI/Abdominal GI/Abdominal exam: Present: normal bowel sounds, soft. Absent: distended, firm - Neurological Exam Neurological exam: Present: altered (Patient is A&O x0. Unable to respond to verbal stimuli. Responds to sternal rub by swatting at hand. Unwilling to open her eyes.) Internal Medicine: Result - Labs CBC & Chem 7: 03/20/17 06:03 03/20/17 06:03 Labs: Short CBC 03/20/17 Range/Units 06:03 WBC 7.6 (4.3-11.1) K/mcL Hgb 12.8 (11.5-15.4) g/dL Hct 39.4 (35.3-44.9) % Plt Count 261 (140-400) K/mcL Neutrophils # 4.6 (1.6-8.9) K/mcL BMP 03/20/17 06:03 Sodium 148 H Potassium 3.4 L Chloride 108 H Carbon Dioxide 28 BUN 28 H Creatinine 1.31 H Glucose 188 H Calcium 8.7 - Impressions Impressions Head CT 03/19/17 06:11 IMPRESSION: No evidence of acute intracranial abnormality. D/ / 03/19/2017 08:33:59 Tristin Gaxiola MD / Arabella Toussaint Interpreting Provider: Tristin Gaxiola MD Consult Discharge Plan - Plan Referrals: NONE,PCP [Primary Care Provider] - <Ady Caceres - Last Filed: 03/20/17 22:18> Date of Encounter: 03/20/17 - Constitutional Vitals: Temp Pulse Resp BP Pulse Ox 98.6 F 97 22 151/60 98 03/20/17 21:12 03/20/17 21:12 03/20/17 21:12 03/20/17 21:12 03/20/17 21:12 Internal Medicine: Result - Labs CBC & Chem 7: 03/20/17 06:03 03/20/17 06:03 Labs: Short CBC 03/20/17 Range/Units 06:03 WBC 7.6 (4.3-11.1) K/mcL Hgb 12.8 (11.5-15.4) g/dL Hct 39.4 (35.3-44.9) % Plt Count 261 (140-400) K/mcL Neutrophils # 4.6 (1.6-8.9) K/mcL BMP 03/20/17 06:03 Sodium 148 H Potassium 3.4 L Chloride 108 H Carbon Dioxide 28 BUN 28 H Creatinine 1.31 H Glucose 188 H Calcium 8.7 - Impressions Impressions Head CT 03/19/17 06:11 IMPRESSION: No evidence of acute intracranial abnormality. D/ / 03/19/2017 08:33:59 Tristin Gaxiola MD / Arabella Toussaint Interpreting Provider: Tristin Gaxiola MD - Attending Attestation I conducted a face to face diagnostic evaluation of this patient and my medical decision-making was reviewed with the Resident Physician, Dr Rosy Slaughter. I agree with the documented findings, disposition and treatment plan as described except to the extent set forth below: Continue with IV antibiotics. Continue with Tamiflu. Oxygen by nasal cannula. PT OT. Discharge planning to subacute rehabilitation. Ady Caceres MD
[2017-03-20] MEDS ORDERED: Potassium Chloride 20 MEQ, Lidocaine 1% 2 ML in D5% in Water 250 ML IVPB ONE (08:27)
[2017-03-20] MEDS: cefTRIAXone 1,000 MG in Water for inj. (sterile) 20 ML 10 ML IVP SCH (08:38)
[2017-03-20] MEDS: Insulin LISPRO 300 UNITS/3 ML VIAL SQ SCH ×4 (08:38→22:08)
[2017-03-20] MEDS: Aspirin 81 MG TAB.CHEW PO SCH (08:46)
[2017-03-20] MEDS: 0.9 % Sodium Chloride 1,000 ML IVC SCH (08:46)
[2017-03-20] MEDS: Oseltamivir Phosphate 30 MG CAPSULE PO SCH (08:50)
[2017-03-20] MEDS ORDERED: Furosemide 20 MG/2 ML VIAL IVP SCH (09:00)
[2017-03-20] MEDS ORDERED: *HR* Metoprolol 5 MG/5 ML VIAL IVP SCH ×2 (12:00→18:00)
[2017-03-20] MEDS: Azithromycin 500 MG in D5% in Water 250 ML IVPB SCH (13:17)
[2017-03-20] MEDS ORDERED: *HR* Metoprolol 5 MG/5 ML VIAL IVP ONE (13:40)
[2017-03-20] MEDS: *HR* Metoprolol 5 MG/5 ML VIAL IVP SCH (17:41)
[2017-03-20] MEDS: Insulin DETEMIR 100 UNIT/ML X5UNITS SQ SCH (22:04)
[2017-03-21] MEDS: *HR* Metoprolol 5 MG/5 ML VIAL IVP SCH ×3 (00:21→13:03)
[2017-03-21] MEDS: 0.9 % Sodium Chloride 1,000 ML IVC SCH ×2 (00:22→13:00)
[2017-03-21] MEDS: Ipratropium/Albuterol Neb 3 ML IH SCH ×6 (04:46→23:47)
[2017-03-21] MEDS: Famotidine 20 MG/2 ML VIAL IVP SCH ×2 (05:24→17:43)
[2017-03-21] MEDS: *HR* Heparin 5,000 UNIT/ML VIAL SQ SCH ×3 (05:24→23:24)
[2017-03-21 06:30] LABS: Calcium 8.2 mg/dL (8.6-10.3); Potassium 3.5 mEq/L (3.5-5.1)
--- NOTE | 2017-03-21 06:53 | Electrocardiograph Report ---
[address] [address] Test Date: 2017-03-17 Pat Name: Daisha Howard Department: 104 Room: 2A42 Gender: F [employer]: : [id number] Requested By: Todd Adair Order Number: [id number] Reading MD: Oseas Mart MD Measurements Intervals [place] Rate: 72 P: 43 NH: 184 QRS: -12 QRSD: 131 T: 40 QT: 422 QTc: 446 Interpretive Statements SINUS RHYTHM WITH OCCASIONAL SUPRAVENTRICULAR PREMATURE COMPLEXES RIGHT BUNDLE BRANCH BLOCK Electronically Signed On 03-21-2017 6:51:14 EST by Oseas Mart MD
[2017-03-21] MEDS: Budesonide/Formoterol 80/4.5 MDI IH SCH ×2 (07:43→19:49)
--- NOTE | 2017-03-21 08:25 | Internal Med Progress Note ---
Date of Encounter: 03/21/17 Time of Encounter: 08:23 - Assessment and plan (1) HCAP (healthcare-associated pneumonia) Current Visit: Yes Status: Acute (2) UTI (urinary tract infection) Current Visit: Yes Status: Acute Qualifiers: Urinary tract infection type: acute cystitis Hematuria presence: without hematuria Qualified Code(s): N30.00 - Acute cystitis without hematuria (3) Influenza A Current Visit: Yes Status: Acute (4) Metabolic encephalopathy Current Visit: Yes Status: Acute (5) Acute kidney injury Current Visit: Yes Status: Acute (6) COPD (chronic obstructive pulmonary disease) Current Visit: No Status: Chronic Qualifiers: COPD type: unspecified COPD Qualified Code(s): J44.9 - Chronic obstructive pulmonary disease, unspecified (7) Diabetes Current Visit: No Status: Chronic Qualifiers: Diabetes mellitus type: type 2 Diabetes mellitus complication status: without complication Diabetes mellitus intermediate teacher insulin use: with intermediate teacher use Qualified Code(s): E11.9 - Type 2 diabetes mellitus without complications ; Z79.4 - middle or intermediate school principal (current) use of insulin; Z79.4 - middle or intermediate school principal (current) use of insulin; Z79.4 - middle or intermediate school principal (current) use of insulin; Z79.4 - [facility] ( current) use of insulin (8) HTN (hypertension) Current Visit: No Status: Chronic Qualifiers: Hypertension type: essential hypertension Qualified Code(s): I10 - Essential (primary) hypertension (9) Dementia Current Visit: No Status: Chronic Qualifiers: Dementia type: unspecified type Dementia behavioral disturbance: without behavioral disturbance Qualified Code(s): F03.90 - Unspecified dementia without behavioral disturbance (10) DVT prophylaxis Current Visit: No Status: Acute - Subjective Interval history: This morning, patient is laying in bed. She is awake when you talk to her and when asked will say her name. She says no to pain, shortness of breathe. When asked if she would like to eat she says yes. Rehab entered the room upon my exam and was going to help to feed the patient. There is currently no family at bedside. - Constitutional Vitals: Temp Pulse Resp BP Pulse Ox 98.5 F 85 16 172/78 98 03/21/17 07:01 03/21/17 07:01 03/21/17 07:43 03/21/17 07:01 03/21/17 07:43 General appearance: Present: A&O X 0. Absent: cooperative, answers questions appropriately Exam: Gen.: Vitals noted. No acute distress. AAOx1 HEENT: oropharynx clear, Normocephalic, atraumatic Neck: Supple. No adenopathy. Cardiac: RRR, no murmur, +S1/S2 Pulmonary: + rales b/l lower lobes, CTA bilaterally, no wheezes, or rhonchi, equal chest expansion Abdomen: soft, nontender, Bowel sounds noted, no guarding Extremities: no BLE edema, nontender calf, no cyanosis or clubbing Neuro: A&Ox1, moves all extremities Internal Medicine: Result - Labs CBC & Chem 7: 03/20/17 06:03 03/21/17 05:50 Labs: BMP 03/21/17 05:50 Sodium 147 H Potassium 3.5 Chloride 111 H Carbon Dioxide 28 BUN 26 H Creatinine 1.37 H Glucose 168 H Calcium 8.2 L Consult Discharge Plan - Plan Referrals: NONE,PCP [Primary Care Provider] -
[2017-03-21] MEDS: Aspirin 81 MG TAB.CHEW PO SCH (09:16)
[2017-03-21] MEDS: Oseltamivir Phosphate 30 MG CAPSULE PO SCH (09:16)
[2017-03-21] MEDS: cefTRIAXone 1,000 MG in Water for inj. (sterile) 20 ML 10 ML IVP SCH (09:16)
[2017-03-21] MEDS: Insulin LISPRO 300 UNITS/3 ML VIAL SQ SCH ×4 (09:17→23:25)
[2017-03-21] MEDS: Azithromycin 500 MG in D5% in Water 250 ML IVPB SCH (13:01)
--- NOTE | 2017-03-21 14:13 | Discharge Summary ---
Date of Encounter: 03/21/17 Time of Encounter: 14:11 - Discharge Diagnosis (1) HCAP (healthcare-associated pneumonia) Priority: Primary Status: Acute (2) UTI (urinary tract infection) Priority: Secondary Status: Acute Qualifiers: Urinary tract infection type: acute cystitis Hematuria presence: without hematuria Qualified Code(s): N30.00 - Acute cystitis without hematuria (3) Influenza A Priority: Secondary Status: Acute (4) Metabolic encephalopathy Priority: Secondary Status: Acute (5) Acute kidney injury Priority: Secondary Status: Acute (6) COPD (chronic obstructive pulmonary disease) Priority: Secondary Status: Chronic Qualifiers: COPD type: unspecified COPD Qualified Code(s): J44.9 - Chronic obstructive pulmonary disease, unspecified (7) Diabetes Priority: Secondary Status: Chronic Qualifiers: Diabetes mellitus type: type 2 Diabetes mellitus complication status: without complication Diabetes mellitus exterminator helper insulin use: with senior living use Qualified Code(s): E11.9 - Type 2 diabetes mellitus without complications ; Z79.4 - joint terminal attack controller (current) use of insulin; Z79.4 - long-term (current) use of insulin; Z79.4 - long-term (current) use of insulin; Z79.4 - joint terminal attack controller ( current) use of insulin (8) HTN (hypertension) Priority: Secondary Status: Chronic Qualifiers: Hypertension type: essential hypertension Qualified Code(s): I10 - Essential (primary) hypertension (9) Dementia Priority: Secondary Status: Chronic Qualifiers: Dementia type: unspecified type Dementia behavioral disturbance: without behavioral disturbance Qualified Code(s): F03.90 - Unspecified dementia without behavioral disturbance (10) DVT prophylaxis Priority: Secondary Status: Acute - Discharge Medications Prescriptions: Cefuroxime PO [Ceftin] 250 mg PO Q12HR #14 tablet Azithromycin [Zithromax] 250 mg PO Q24H #2 tablet Oseltamivir Phosphate [Tamiflu] 30 mg PO DAILY #3 capsule Home Medications: Atorvastatin [Lipitor] 10 mg PO HS tablet 01/28/15 [Rx] Folic Acid 1 mg PO DAILY tablet 01/28/15 [Rx] Acetaminophen [Tylenol] 650 mg PO Q6HR PRN 10/01/15 [History] Aspirin 81 mg PO DAILY 10/01/15 [History] Ranitidine HCl [Zantac] 150 mg PO BID 10/11/15 [History] Bisacodyl [Dulcolax] 10 mg RC HS PRN 05/13/16 [History] Fluticasone/Salmeterol [Advair 250-50 Diskus] 1 each IH BID 05/13/16 [History] Furosemide [Lasix] 40 mg PO DAILY 05/13/16 [History] Insulin ASPART [Novolog] 12 unit SQ 1700 05/13/16 [History] Insulin DETEMIR [Levemir] 20 unit SQ HS 05/13/16 [History] Magnesium Hydroxide [Milk of Magnesia] 2,400 mg PO DAILY PRN 05/13/16 [History] Acetaminophen [Tylenol] 650 mg PO 0700,1300,1900 03/17/17 [History] Carvedilol [Coreg] 6.25 mg PO BIDWM 03/17/17 [History] Insulin ASPART [NovoLOG] 15 unit SQ 0800,1200 03/17/17 [History] Multivitamin [One Daily Multivitamin] 1 each PO DAILY 03/17/17 [History] Polyethylene Glycol 3350 [MiraLAX] 17 gm PO DAILY 03/17/17 [History] Promethazine HCl 12.5 mg PO 1200 03/17/17 [History] Azithromycin [Zithromax] 250 mg PO Q24H #2 tablet 03/21/17 [Rx] Cefuroxime PO [Ceftin] 250 mg PO Q12HR #14 tablet 03/21/17 [Rx] Oseltamivir Phosphate [Tamiflu] 30 mg PO DAILY #3 capsule 03/21/17 [Rx] Allergies/Adverse Reactions: 3 Allergy/AdvReac Type Severity Reaction Status Date / Time No Known Allergies Allergy Verified 03/17/17 15:18 Procedures/tests Complete & Pending: Procedures Performed prior 72 hours Category Date Time Status CT head/brain wo con [CT] Stat Cat Scan 03/19/17 06:11 Completed ECG 12 lead ECG [ECG] Stat Y 03/19/17 06:02 Completed Date of admission: 03/18/17 08:21 Primary care physician: PCP NONE Consults: 03/18/17 08:32 Consult to Occupational Therapy [CONS] Routine Comment: Evaluate, develop and implement POC Reason for Consult: WEAKNESS Consult to Physical Therapy [CONS] Routine Comment: Evaluate, develop and implement POC Reason for Consult: weakness 03/20/17 15:49 Consult to Audio Tape Librarian [CONS] Routine Reason for SW Consult: [facility] Discharging clinician: Alverto Waterman Anticipated date of discharge: 03/21/17 - Patient Status Disposition: Transfer LTC Condition: Fair - Discharge Instructions Follow Up With: NONE,PCP [Primary Care Provider] - Additional Instructions: Follow up with jail PCP finish the antibiotics to completion follow-up chest x-ray ordered for 4 weeks return to the hospital should you develop fever, chills, increased shortness of breath - Diet and Activity Activity: as per physical therapy, increase activity as tolerated Diet: advance to your usual diet Hospital course: Ms. Howard is a 87 year old female from [facility] patient was initially seen a couple days ago by the physician at the jail due to lethargy and altered mental status and that she was sleeping more than usual. She was sent to the emergency department because she has acute worsening of her creatinine along with hypernatremia and a urinary tract infection. The patient was unable to provide any further history because of advanced dementia. Patient admitted with metabolic encephalopathy thought to be induced by UTI, pneumonia, and hypernatremia superimposed on baseline dementia. CXR demonstrated small left pleural effusion, mild diffuse bilateral interstitial opacities that may be atypical pneumonia or edema. She had elevated troponin of 0.16 which after trending decreased. EKG showed no acute changes of ST elevation or depression. While at the jail she was prophylactically started on Tamiflu at [facility] due to multiple residents in her [place] testing positive for influenza. At the hospital she tested positive for Influenza A. Head CT demonstrated no acute cranial abnormality. Blood cultures are negative to date. Urinalysis: nitrite and esterase positive. The patient was afebrile and had a normal white blood cell count. She was admitted and started on Zosyn. However, after culture sensitivity returned showed that her urinary tract infection from E. coli was sensitive to Rocephin. Her antibiotics were then change to azithromycin and Rocephin. She was given supplemental oxygen and duonebs. She is also continued on Tamiflu but at a lower dose due to her CKD. Family came to set this patient and for update on status and treatment plan. The patient required PT/OT evaluation, and they reported that she was currently at her baseline and no longer required PT/OT services. She did require speech evaluation which recommended pured foods at the time. Upon discharge the patient was fully awake and oriented to person. She is more awake today that she had been the whole time. She was able to eat food. She remained afebrile with WBC within normal limits, her NATHALY improved. She will return to [facility] for the continued treatment and care for her pneumonia and UTI. She is to finish her antibiotics and Tamiflu until completion. She is to follow up with the jail PCP and to get a follow-up chest x-ray in 4 weeks. - Time Spent with Patient Total time spent providing and/or coordinating discharge services: Greater than 30 minutes - Constitutional Vitals: Temp Pulse Resp BP Pulse Ox 98.3 F 95 16 178/81 95 03/21/17 10:54 03/21/17 10:54 03/21/17 11:30 03/21/17 10:54 03/21/17 11:30 General appearance: Present: cooperative, A&O X 1, no acute distress. Absent: answers questions appropriately Exam: Gen.: Vitals noted. No acute distress. AAOx1 HEENT: oropharynx clear, Normocephalic, atraumatic Neck: Supple. No adenopathy. Cardiac: RRR, no murmur, +S1/S2 Pulmonary: + rales b/l lower lobes, CTA bilaterally, no wheezes, or rhonchi, equal chest expansion Abdomen: soft, nontender, Bowel sounds noted, no guarding Extremities: no BLE edema, nontender calf, no cyanosis or clubbing Neuro: A&Ox1, moves all extremities
--- NOTE | 2017-03-21 14:54 | Physician Discharge Referral ---
ExtendedCare Referral Info Transfer To: [facility] Provider in Charge after Transfer: PCP Institutional Level of Care: Skilled - Diagnosis (1) HCAP (healthcare-associated pneumonia) Priority: Primary Status: Acute (2) UTI (urinary tract infection) Status: Acute (3) Influenza A Status: Acute (4) Metabolic encephalopathy Status: Acute (5) Acute kidney injury Status: Acute (6) COPD (chronic obstructive pulmonary disease) Status: Chronic (7) Diabetes Status: Chronic (8) HTN (hypertension) Status: Chronic (9) Dementia Status: Chronic (10) DVT prophylaxis Status: Acute - Transfer Medications Prescriptions: Cefuroxime PO [Ceftin] 250 mg PO Q12HR #14 tablet Azithromycin [Zithromax] 250 mg PO Q24H #2 tablet Oseltamivir Phosphate [Tamiflu] 30 mg PO DAILY #3 capsule Home Medications: Atorvastatin [Lipitor] 10 mg PO HS tablet 01/28/15 [Rx] Folic Acid 1 mg PO DAILY tablet 01/28/15 [Rx] Acetaminophen [Tylenol] 650 mg PO Q6HR PRN 10/01/15 [History] Aspirin 81 mg PO DAILY 10/01/15 [History] Ranitidine HCl [Zantac] 150 mg PO BID 10/11/15 [History] Bisacodyl [Dulcolax] 10 mg RC HS PRN 05/13/16 [History] Fluticasone/Salmeterol [Advair 250-50 Diskus] 1 each IH BID 05/13/16 [History] Furosemide [Lasix] 40 mg PO DAILY 05/13/16 [History] Insulin ASPART [Novolog] 12 unit SQ 1700 05/13/16 [History] Insulin DETEMIR [Levemir] 20 unit SQ HS 05/13/16 [History] Magnesium Hydroxide [Milk of Magnesia] 2,400 mg PO DAILY PRN 05/13/16 [History] Acetaminophen [Tylenol] 650 mg PO 0700,1300,1900 03/17/17 [History] Carvedilol [Coreg] 6.25 mg PO BIDWM 03/17/17 [History] Insulin ASPART [NovoLOG] 15 unit SQ 0800,1200 03/17/17 [History] Multivitamin [One Daily Multivitamin] 1 each PO DAILY 03/17/17 [History] Polyethylene Glycol 3350 [MiraLAX] 17 gm PO DAILY 03/17/17 [History] Promethazine HCl 12.5 mg PO 1200 03/17/17 [History] Azithromycin [Zithromax] 250 mg PO Q24H #2 tablet 03/21/17 [Rx] Cefuroxime PO [Ceftin] 250 mg PO Q12HR #14 tablet 03/21/17 [Rx] Oseltamivir Phosphate [Tamiflu] 30 mg PO DAILY #3 capsule 03/21/17 [Rx] Allergies/Adverse Reactions: 3 Allergy/AdvReac Type Severity Reaction Status Date / Time No Known Allergies Allergy Verified 03/17/17 15:18 - Respiratory Orders Oxygen / L per min (Oxygen as needed) Smoking Cessation: Smoking cessation has been advised. For more information, call the [employer] Tobacco Quit Line at 2-763-UPIF-NOW. - Lab Orders Lab Orders: Other (include drug levels w/frequency) (Follow-up chest x-ray in 4 weeks) - Advance Directives Code Status: Full Code - Rehabiliation Orders Rehab Potential: Poor - Diet Orders Pureed CERTIFICATION: I certify that the transfer of the above named patient to an Extended Care Facility is necessary for the continuing treatment of the diagnosis listed. The above information is true and accurate reflection of patient's current condition. Dr. Slaughter Confidential - Redisclosure prohibited without a patient's written consent.
[2017-03-21] MEDS: Insulin DETEMIR 100 UNIT/ML X5UNITS SQ SCH (23:24)
[2017-03-22] MEDS: Ipratropium/Albuterol Neb 3 ML IH SCH ×6 (03:40→23:16)
[2017-03-22] MEDS: *HR* Heparin 5,000 UNIT/ML VIAL SQ SCH ×3 (05:48→22:14)
[2017-03-22] MEDS: Famotidine 20 MG/2 ML VIAL IVP SCH (05:48)
--- NOTE | 2017-03-22 07:53 | Electrocardiograph Report ---
[address] [address] Test Date: 2017-03-19 Pat Name: Daisha Howard Department: 112 Room: 2A42 Gender: F Model Maker: : 1930 Requested By: Frank Hernandez Order Number: [id number] Reading MD: Oseas Mart MD Measurements Intervals [place] Rate: 76 P: 58 [place]: 205 QRS: -6 QRSD: 137 T: 30 QT: 427 QTc: 457 Interpretive Statements SINUS RHYTHM WITH OCCASIONAL SUPRAVENTRICULAR PREMATURE COMPLEXES RIGHT BUNDLE BRANCH BLOCK Electronically Signed On 03-22-2017 6:15:38 EST by Oseas Mart MD
--- NOTE | 2017-03-22 07:53 | Electrocardiograph Report ---
[address] [address] Test Date: 2017-03-19 Pat Name: Daisha Howard Department: 112 Room: 2A42 Gender: F Computer Support Specialist: : [id number] Requested By: Frank Hernandez Order Number: [id number] Reading MD: Oseas Mart MD Measurements Intervals [place] Rate: 74 P: PA: 0 QRS: -39 QRSD: 130 T: -30 QT: 446 QTc: 473 Interpretive Statements PROBABLY SINUS RHYTHM WITH PVC MARKED LEFT AXIS DEVIATION RIGHT BUNDLE BRANCH BLOCK BASELINE ARTIFACT COMPLICATES ACCURATE INTERPRETATION BASELINE ARTIFACT, REPEAT EKG Electronically Signed On 03-22-2017 6:14:48 EST by Oseas Mart MD
[2017-03-22] MEDS: Insulin LISPRO 300 UNITS/3 ML VIAL SQ SCH ×4 (08:41→22:05)
[2017-03-22 08:56] LABS: Basophils # 0.1 K/mcL (0.0-0.2); Basophils % 0.7 %; Eosinophils # 0.2 K/mcL (0.0-0.6); Eosinophils % 3.2 %; Hematocrit 37.4 % (35.3-44.9); Hemoglobin 11.7 g/dL (11.5-15.4); Immature Granulocytes % 1.7 % (0-4); Lymphocytes # 1.8 K/mcL (0.6-4.6); Lymphocytes % 25.9 %; Mean Corpuscular HGB Conc 31.3 g/dL (31.6-35.5); Mean Corpuscular Hemoglobin 29.6 pg (28.0-33.3); Mean Corpuscular Volume 94.7 fL (83.0-100.0); Mean Platelet Volume 11.1 fL (9.4-12.4); Monocytes # 0.8 K/mcL (0.0-1.3); Neutrophils # 4.1 K/mcL (1.6-8.9); Platelet Count 246 K/mcL (140-400); Red Blood Count 3.95 M/mcL (3.82-4.97); Red Cell Distribution Width 14.1 % (11.5-14.5); Segmented Neutrophils % 57.5 %
[2017-03-22 09:00] LABS: Calcium 8.7 mg/dL (8.6-10.3); Potassium 3.6 mEq/L (3.5-5.1)
--- NOTE | 2017-03-22 09:08 | Internal Med Progress Note ---
<Rosy Slaughter - Last Filed: 03/22/17 10:04> Date of Encounter: 03/22/17 Time of Encounter: 09:19 - Assessment and plan (1) HCAP (healthcare-associated pneumonia) Current Visit: Yes Status: Acute Assessment and plan: Healthcare associated pneumonia. Patient presented from [facility]. CXR demonstrated small left pleural effusion, mild diffuse bilateral interstitial opacities that may be atypical pneumonia or edema WBC WNL 96% on 2L patient reports improvement in dyspnea D/C pending cardiology consult Patient on azithromycin and Rocephin day day 4 Supplemental oxygen as needed (2) Chest pain Current Visit: No Status: Acute Assessment and plan: Yesterday just prior to discharge the patient reported she was having chest pain. An EKG was then ordered and showed ST depression in lateral leads. Troponin was ordered and showed in increase from 0.15 two days prior and now is 0.72. Cardiology was consulted and requested an echo be ordered, troponin for next day, and they would see patient. It was discussed that the patient had not had her coreg in 2 days due to altered mental status and refusing to eat/ drink and take her oral medications. So in the place of Coreg she had been receiving IV Lopressor. Yesterday before discharge she was alert and oriented to person and at baseline for mental capacity. She was able to eat and that evening was given her coreg. Cardiology believed that the new findings were due to not receiving her beta yasir since she were not take it. Code status was discussed with the patient's family the day she arrived however they were adamant to keep her full code. So the discharge was canceled. Plan cardiology consulted and recommendations appreciated echocardiogram pending troponin improved now 0.68, and last night 0.72 Qualifiers: Ischemic chest pain type: unstable angina pectoris Qualified Code(s): I20.0 - Unstable angina (3) UTI (urinary tract infection) Current Visit: Yes Status: Acute Assessment and plan: Urine culture 03/14/2017 grew E. coli sensitive to ceftriaxone Urinalysis: nitrite and esterase positive Patient on Rocephin day 4 Qualifiers: Urinary tract infection type: acute cystitis Hematuria presence: without hematuria Qualified Code(s): N30.00 - Acute cystitis without hematuria (4) Influenza A Current Visit: Yes Status: Acute Assessment and plan: The patient is a resident of [facility] and was prophylactically started on Tamiflu at [facility] due to multiple residents in her [place] testing positive for influenza. Influenza A positive Continue Tamiflu 2 more days supplemental oxygen is needed (5) Metabolic encephalopathy Current Visit: Yes Status: Acute Assessment and plan: Patient is A&O x2 this morning. Significantly improved mentation, patient sitting up and has ate some of her breakfast. Patient admitted with metabolic encephalopathy thought to be induced by UTI, pneumonia, and hypernatremia superimposed on baseline dementia CXR demonstrated small left pleural effusion, mild diffuse bilateral interstitial opacities that may be atypical pneumonia or edema WBC WNL sodium was 158 on admission, and now [address] demonstrated no acute cranial abnormality blood cultures are negative to date Urinalysis: nitrite and esterase positive (6) Acute kidney injury Current Visit: Yes Status: Acute Assessment and plan: Patient presented with NATHALY most likely due to dehydration from decreased oral intake. Patient has CKD creatinine baseline 1.3- 1.5 Creatinine improved 1.41 (she is at baseline creatinine) Avoid nephrotoxic agents monitor creatinine patients received IVF encourage oral hydration (7) COPD (chronic obstructive pulmonary disease) Current Visit: No Status: Chronic Assessment and plan: History of COPD. Not in exacerbation 96% oxygen saturation on 2 L continue home Symbicort supplemental oxygen is needed Duonebs every 4 hours Qualifiers: COPD type: unspecified COPD Qualified Code(s): J44.9 - Chronic obstructive pulmonary disease, unspecified (8) Diabetes Current Visit: No Status: Chronic Assessment and plan: History of diabetes taking insulin glucose 157 Levemir 10 units HS low-dose sliding scale insulin HS low dose sliding scale insulin TIDAC glucose checks ACHS Qualifiers: Diabetes mellitus type: type 2 Diabetes mellitus complication status: without complication Diabetes mellitus intermediate frame tender insulin use: with [facility] use Qualified Code(s): E11.9 - Type 2 diabetes mellitus without complications ; Z79.4 - termite control servicer (current) use of insulin; Z79.4 - prison (current) use of insulin; Z79.4 - prison (current) use of insulin; Z79.4 - termite control servicer ( current) use of insulin (9) HTN (hypertension) Current Visit: No Status: Chronic Assessment and plan: History of hypertension. BP 115/74 continue Coreg continue Lasix 20mg Qualifiers: Hypertension type: essential hypertension Qualified Code(s): I10 - Essential (primary) hypertension (10) Dementia Current Visit: No Status: Chronic Assessment and plan: Patient is currently A&O x2. She is alert and mentation has significantly improved. According to her family she has Dementia not currently taking medication for it. Ashlee reports that at baseline patient is able to recognize family and have conversations however she does forget each visit at the next visit. Patient resides in a [facility]. PT/OT state patient is at baseline for mobility and does not require further PT/ OT speech recommend pureed foods when patient is wide awake Qualifiers: Dementia type: unspecified type Dementia behavioral disturbance: without behavioral disturbance Qualified Code(s): F03.90 - Unspecified dementia without behavioral disturbance (11) DVT prophylaxis Current Visit: No Status: Acute Assessment and plan: Heparin sq - Subjective Interval history: Patient is resting comfortably in bed this morning and is eating breakfast. Her mental status is significantly improved this morning. she is A&O x 2. She states that she is feeling better and enjoying her breakfast. She denies chest pain, shortness of breath, fever, chills, dysuria. Waiting on cardiology evaluation and echocardiogram report. - Constitutional Vitals: Temp Pulse Resp BP Pulse Ox 98.1 F 92 16 115/74 95 03/22/17 08:00 03/22/17 08:00 03/22/17 08:00 03/22/17 08:00 03/22/17 08:00 General appearance: Present: cooperative, A&O X 2, no acute distress, answers questions appropriately - Head Head exam: Present: normal inspection - Respiratory Respiratory exam: Present: rales (Rales present in lung bases bilaterally.). Absent: rhonchi, wheezes - Cardiovascular Cardiovascular exam: Present: RRR - GI/Abdominal GI/Abdominal exam: Present: normal bowel sounds, soft. Absent: tenderness - Extremities Exam Extremities exam: Present: normal inspection. Absent: tenderness - Neurological Exam Neurological exam: Present: alert. Absent: altered, facial droop - Psychiatric Psychiatric exam: Present: normal affect, normal mood. Absent: anxious - Skin Skin exam: Present: dry, intact Internal Medicine: Result - Labs CBC & Chem 7: 03/22/17 08:36 03/22/17 08:36 Labs: Short CBC 03/22/17 Range/Units 08:36 WBC 7.1 (4.3-11.1) K/mcL Hgb 11.7 (11.5-15.4) g/dL Hct 37.4 (35.3-44.9) % Plt Count 246 (140-400) K/mcL Neutrophils # 4.1 (1.6-8.9) K/mcL BMP 03/22/17 08:36 Sodium 151 H Potassium 3.6 Chloride 113 H Carbon Dioxide 29 Calcium 8.7 Cardiac Enzymes 03/21/17 03/22/17 Range/Units 15:51 04:12 Troponin I 0.72 H* 0.68 H* (< 0.04) ng/mL Consult Discharge Plan - Plan Additional Instructions: Follow up with [facility] PCP finish the antibiotics to completion follow-up chest x-ray ordered for 4 weeks return to the hospital should you develop fever, chills, increased shortness of breath Referrals: NONE,PCP [Primary Care Provider] - Prescriptions: Cefuroxime PO [Ceftin] 250 mg PO Q12HR #14 tablet Azithromycin [Zithromax] 250 mg PO Q24H #2 tablet Oseltamivir Phosphate [Tamiflu] 30 mg PO DAILY #3 capsule <Alverto Waterman - Last Filed: 03/22/17 13:00> Date of Encounter: 03/22/17 - Constitutional Vitals: Temp Pulse Resp BP Pulse Ox 98.3 F 88 16 145/67 97 03/22/17 11:28 03/22/17 11:28 03/22/17 11:28 03/22/17 11:28 03/22/17 11:28 Internal Medicine: Result - Labs CBC & Chem 7: 03/22/17 08:36 03/22/17 08:36 Labs: Short CBC 03/22/17 Range/Units 08:36 WBC 7.1 (4.3-11.1) K/mcL Hgb 11.7 (11.5-15.4) g/dL Hct 37.4 (35.3-44.9) % Plt Count 246 (140-400) K/mcL Neutrophils # 4.1 (1.6-8.9) K/mcL BMP 03/22/17 08:36 Sodium 151 H Potassium 3.6 Chloride 113 H Carbon Dioxide 29 BUN 23 Creatinine 1.41 H Glucose 157 H Calcium 8.7 Cardiac Enzymes 03/21/17 03/22/17 Range/Units 15:51 04:12 Troponin I 0.72 H* 0.68 H* (< 0.04) ng/mL - Impressions Impressions Echocardiogram 03/22/17 16:48 Impressions: Technically sub-optimal due to poor echocardiographic windows. LVEF 60%. Not all LV segments were well visualized, but overall LVEF appears normal. Atypical septal motion consistent with a postoperative septum/BBB. Normal LV chamber size. Asymmetric hypertrophy of the basal septum. No LVOT obstruction. Mild left ventricular diastolic dysfunction. Grossly normal right ventricular structure and function. No evidence of pulmonary hypertension. No obvious significant valvular dysfunction. Findings: Study Quality * Technically sub-optimal due to poor echocardiographic windows. ECG Findings * Sinus rhythm with BBB. Left Ventricle * LVEF 60%. Not all LV segments were well visualized, but overall LVEF appears normal. * Normal LV chamber size. * Asymmetric hypertrophy of the basal septum. No LVOT obstruction. * Mild left ventricular diastolic dysfunction. Right Ventricle * Grossly normal right ventricular structure and function. Left Atrium * Moderately dilated left atrium. Right Atrium * Normal right atrial size. Aortic Valve * Aortic valve not well visualized. * No aortic regurgitation. * No aortic stenosis. Mitral Valve * Mild to moderate mitral annular calcification. * No mitral regurgitation. * No mitral stenosis. Tricuspid Valve * Grossly normal tricuspid valve structure and function. * Trace tricuspid regurgitation. * No evidence of pulmonary hypertension. Pulmonic Valve * Pulmonic valve is not well visualized. Aorta * Normally sized aortic root. Pericardium * The pericardium appears normal. IVC * The IVC is not well evaluated. Pulmonary Artery * Pulmonary artery not well visualized. - Attending Attestation I personally interviewed and examined this patient. I agree with the findings, assessment and plan of Dr. Slaughter, total medicine resident. Please see our detailed discharge every performed yesterday. Patient remained one additional day due to elevated troponins. Echocardiogram is pending Patient does not want a left heart catheterization. Etiology input is appreciated. We will maximize medical therapy. All else as outlined above. Patient is improved. She is back on beta yasir scheduled. All else as outlined above. 38 minutes spent on discharge and coordination of care
[2017-03-22] MEDS: cefTRIAXone 1,000 MG in Water for inj. (sterile) 20 ML 10 ML IVP SCH (09:13)
[2017-03-22] MEDS: Oseltamivir Phosphate 30 MG CAPSULE PO SCH (09:14)
[2017-03-22] MEDS: Aspirin 81 MG TAB.CHEW PO SCH (09:14)
[2017-03-22] MEDS: Budesonide/Formoterol 80/4.5 MDI IH SCH ×2 (11:00→19:55)
--- NOTE | 2017-03-22 11:01 | Cardiology Consult Note ---
Addendum entered and electronically signed by Gary Whalen CNP 03/22/17 13:25: Echo resulted. Technically sub-optimal due to poor echocardiographic windows. LVEF 60%. Not all LV segments were well visualized, but overall LVEF appears normal. Atypical septal motion consistent with a postoperative septum/BBB. Normal LV chamber size. Asymmetric hypertrophy of the basal septum. No LVOT obstruction. Mild left ventricular diastolic dysfunction. Grossly normal right ventricular structure and function. No evidence of pulmonary hypertension. No obvious significant valvular dysfunction. EF is preserved. As below, pt preferred medical management when LHC was discussed. Imdur 30mg daily added. Anticipate sign off once seen and evaluated by Dr. Giang. Addendum entered and electronically signed by Gary Whalen CNP 03/22/17 11:33: Repeat EKG does show inferolateral ST depression, worse from baseline. Await echo results for further recommendations. Original Note: <Gary Whalen - Last Filed: 03/22/17 11:08> Date of Encounter: 03/22/17 Time of Encounter: 10:58 Assessment and Plan (1) Elevated troponin Current Visit: Yes Status: Acute Troponin 0.16, 0.14, 0.15, 0.72, 0.68 in setting of NATHALY on CKD, PNA, Influenza A , UTI. Suspect demand ischemia, nondiagnostic for ACS. Per progress note, pt complained of chest pain yesterday prior to discharge. She denies chest pain to me when questioned, but has known dementia. There was concern for inferolateral EKG changes, but appears it may be artifact. Repeat EKG ordered. Echo 09/2015 EF 60%, mild TR, mild phtn. Recheck echo. I discussed with pt the option of a LHC, which she states she would not want. R/ B/A discussed. Await echo and repeat EKG. (2) CAD (coronary artery disease) Current Visit: Yes Status: Chronic Hx of CABG. Continue ASA, Statin, BB. Qualifiers: Coronary Disease-Associated Artery/Lesion type: [place] artery [place] vs. transplanted heart: [place] heart Associated angina: angina presence unspecified Qualified Code(s): I25.10 - Atherosclerotic heart disease of [place] coronary artery without angina pectoris (3) Paroxysmal atrial fibrillation Current Visit: Yes Status: Chronic Known hx of PAF. Continue BB. [id number] 6 (Age, HTN, Female, DM, CAD). High CVA risk, but historically has been deemed a poor candidate for anticoagulation given her dementia and high falls risk. Continue ASA only. Discussion w patient/family: The assessment and plan as outlined above was discussed with the patient and/or family members who expressed understanding and agreement. All questions were answered. Thank you for involving us in the care of your patient. Please call with any questions. I will discuss all the above with Dr. Giang and make changes as necessary. History of Present Illness Consult date: 03/22/17 Requesting physician: Rosy Slaughter Consult reason: Elevated troponin, chest pain History of present illness: Ms. Howard is a 87 year old female with a history of CAD, prior CABG, DM type II, PAF, and COPD, dementia that presented to ED with AMS, found to NATHALY on CKD, UTI , PNA, and influenza A. Troponins 0.16, 0.14, 0.15. Pt was going to be discharged yesterday, then complained of chest pain and troponin was rechecked, found to be 0.72, 0.68. Cardiology consulted for further recommendations. Pt has dementia, but denies any chest pain to me when questioned. Reports breathing is at baseline. There were concerns for inferolateral ST changes, but appears may be secondary to artifact. Prior CV testing: Echo 10/13/15: EF 60%, mild TR, mild pthn. Past Med Surg Social Fam HX - Past Medical History Medical history: COPD, coronary artery disease, dementia, diabetes, hyperlipidemia, hypertension, other Psychiatric history: no psych history - Past Surgical History Surgical History: carotid endarterectomy, coronary bypass (CABG), other - Social History Smoking Status: Never smoker Smokeless Tobacco Status: No Alcohol use: none Drug use: none - Family History Mother Hx Family Cancer: Yes Medications and Allergies Atorvastatin [Lipitor] 10 mg PO HS tablet 01/28/15 [Rx] Folic Acid 1 mg PO DAILY tablet 01/28/15 [Rx] Acetaminophen [Tylenol] 650 mg PO Q6HR PRN 10/01/15 [History] Aspirin 81 mg PO DAILY 10/01/15 [History] Ranitidine HCl [Zantac] 150 mg PO BID 10/11/15 [History] Bisacodyl [Dulcolax] 10 mg RC HS PRN 05/13/16 [History] Fluticasone/Salmeterol [Advair 250-50 Diskus] 1 each IH BID 05/13/16 [History] Furosemide [Lasix] 40 mg PO DAILY 05/13/16 [History] Insulin ASPART [Novolog] 12 unit SQ 1700 05/13/16 [History] Insulin DETEMIR [Levemir] 20 unit SQ HS 05/13/16 [History] Magnesium Hydroxide [Milk of Magnesia] 2,400 mg PO DAILY PRN 05/13/16 [History] Acetaminophen [Tylenol] 650 mg PO 0700,1300,1900 03/17/17 [History] Carvedilol [Coreg] 6.25 mg PO BIDWM 03/17/17 [History] Insulin ASPART [NovoLOG] 15 unit SQ 0800,1200 03/17/17 [History] Multivitamin [One Daily Multivitamin] 1 each PO DAILY 03/17/17 [History] Polyethylene Glycol 3350 [MiraLAX] 17 gm PO DAILY 03/17/17 [History] Promethazine HCl 12.5 mg PO 1200 03/17/17 [History] Azithromycin [Zithromax] 250 mg PO Q24H #2 tablet 03/21/17 [Rx] Cefuroxime PO [Ceftin] 250 mg PO Q12HR #14 tablet 03/21/17 [Rx] Oseltamivir Phosphate [Tamiflu] 30 mg PO DAILY #3 capsule 03/21/17 [Rx] 3 Allergy/AdvReac Type Severity Reaction Status Date / Time No Known Allergies Allergy Verified 03/17/17 15:18 ROS unobtainable: due to mental status All Systems Review: A 10-system review of systems was performed and is negative for pertinent findings except as documented above in the HPI. Physical Examination Vital Signs, Last 4 Hours Temp Pulse Resp BP Pulse Ox 03/22/17 08:00 98.1 F 92 16 115/74 95 Vital Signs Temp Pulse Resp BP Pulse Ox 03/22/17 08:00 98.1 F 92 16 115/74 95 03/22/17 04:13 97.7 F 73 16 147/72 96 03/22/17 03:40 16 94 03/22/17 00:20 98 F 98 16 164/52 98 03/21/17 23:47 16 96 03/21/17 22:34 98.3 F 82 17 158/64 93 03/21/17 19:49 18 95 03/21/17 16:42 16 97 03/21/17 16:15 98.2 F 90 21 170/76 100 03/21/17 11:30 16 95 Intake and Output 03/21/17 03/22/17 03/22/17 23:59 07:59 15:59 Intake Total 120 / 120 Balance 120 / 120 Intake: Oral 120 / 120 Other: Meal Breakfast Percent of Meal Consumed 25% Stool Size Large Large Stool Consistency soft liquid Stool Color Brown Brown # Voids 1 # Urine Diapers 1 1 # Bowel Movement Diapers 1 1 Blood Glucose* 140 136 General: Conversant, No Apparent Distress HEENT: Atraumatic, Normocephaly, Mucus Membranes Moist Neck: No JVD, Normal carotid pulses Cardiac: Reg Rate and Rhythm, Normal S1 and S2, No Murmur Lungs: Normal Breath Sounds, No Wheeze, Rales, Rhonchi Neuro: Alert and responsive, Other (confused at times) Abdomen: Soft, Non-Tender Skin: No rashes noted on visualized skin Musculoskeletal: No Chest Wall Tenderness Extremities: No Clubbing, No Cyanosis, No Edema, Normal Pulses Results 03/22/17 08:36 03/22/17 08:36 Lab Results 03/21/17 03/22/17 03/22/17 15:51 04:12 08:36 WBC 7.1 Hgb 11.7 Hct 37.4 Plt Count 246 Sodium Potassium Chloride Carbon Dioxide BUN Creatinine Glucose Calcium Troponin I 0.72 H* 0.68 H* 03/22/17 08:36 WBC Hgb Hct Plt Count Sodium 151 H Potassium 3.6 Chloride 113 H Carbon Dioxide 29 BUN 23 Creatinine 1.41 H Glucose 157 H Calcium 8.7 Troponin I Short CBC 03/22/17 Range/Units 08:36 WBC 7.1 (4.3-11.1) K/mcL Hgb 11.7 (11.5-15.4) g/dL Hct 37.4 (35.3-44.9) % Plt Count 246 (140-400) K/mcL Neutrophils # 4.1 (1.6-8.9) K/mcL BMP 03/22/17 Range/Units 08:36 Sodium 151 H (136-145) mEq/L Potassium 3.6 (3.5-5.1) mEq/L Chloride 113 H (98-107) mEq/L Carbon Dioxide 29 (23-29) mEq/L BUN 23 (8-23) mg/dL Creatinine 1.41 H (0.60-1.20) mg/dL Glucose 157 H (70-105) mg/dL Calcium 8.7 (8.6-10.3) mg/dL Cardiac Enzymes 03/22/17 03/21/17 Range/Units 04:12 15:51 Troponin I 0.68 H* 0.72 H* (< 0.04) ng/mL Impressions Chest X-Ray 03/17/17 15:29 IMPRESSION: Small left pleural effusion and left basilar airspace disease. Mild, diffuse bilateral interstitial opacities may reflect interstitial edema or atypical pneumonia. D/ /17/2017 16:27:50 Maylin Taylor MD / pallavi Interpreting Provider: Maylin Taylor MD Active Medications Albuterol/Ipratropium (Duoneb) 3 ml IH [id number] [facility]OMA Stop: 09/18/17 16:01 Last Admin: 03/22/17 11:00 Dose: 3 ml Aspirin (Aspirin) 81 mg PO DAILY [facility]OMA Stop: 09/17/17 09:01 Last Admin: 03/22/17 09:14 Dose: 81 mg Atorvastatin Calcium (Lipitor) 10 mg PO HS TOMA Stop: 09/17/17 21:01 Last Admin: 03/21/17 23:24 Dose: 10 mg Azithromycin (Zithromax) 500 mg PO Q24H [facility] Stop: 09/21/17 13:01 Budesonide/Formoterol Fumarate (Symbicort) 2 puff IH BIDRESP [facility] Stop: 09/18/17 22:01 Last Admin: 03/22/17 11:00 Dose: 2 puff Carvedilol (Coreg) 6.25 mg PO BIDWM [facility]OMA PRN Reason: Protocol Stop: 09/20/17 17:01 Last Admin: 03/22/17 09:14 Dose: 6.25 mg Dextrose/Water (Dextrose 50% (Syg)) 25 ml IVP AD PRN PRN Reason: Hypoglycemia Stop: 09/17/17 11:03 Famotidine (Pepcid) 10 mg PO 0730,1630 [facility] PRN Reason: Protocol Stop: 09/21/17 16:31 Furosemide (Lasix) 40 mg PO DAILY [facility] Stop: 09/21/17 10:16 Glucagon (Glucagen) 1 mg IM ONCE PRN PRN Reason: Hypoglycemia Stop: 09/17/17 11:03 Glucose (Gluctose) 15 gm PO ONCE PRN PRN Reason: Hypoglycemia Stop: 09/17/17 11:03 Glucose (Gluctose) 30 gm PO ONCE PRN PRN Reason: Hypoglycemia Stop: 09/17/17 11:03 Heparin Sodium (Porcine) (Heparin) 5,000 unit SQ Q8HCO [facility] Stop: 09/17/17 14:01 Last Admin: 03/22/17 05:48 Dose: 5,000 unit Hydralazine HCl (Hydralazine) 10 mg IVP Q6HR PRN PRN Reason: Hypertension Stop: 09/17/17 08:29 Last Admin: 03/21/17 13:03 Dose: 10 mg Dextrose (Dextrose 5%) 1,000 mls @ 100 mls/hr IVC .Q10H PRN PRN Reason: HYPOGLYCEMIA Stop: 09/17/17 11:03 Ceftriaxone Sodium 1,000 mg/ (Sterile Water) 10 mls @ 300 mls/hr IVP DAILY [facility] Stop: 09/18/17 12:19 Last Admin: 03/22/17 09:13 Dose: 300 mls/hr Insulin Detemir (Levemir) 10 unit SQ HS [facility] Stop: 09/18/17 21:01 Last Admin: 03/21/17 23:24 Dose: 10 unit Insulin Human Lispro (Humalog) 0 units SQ HS [facility] PRN Reason: Protocol Stop: 09/17/17 21:01 Last Admin: 03/21/17 23:25 Dose: Not Given Insulin Human Lispro (Humalog) 0 units SQ TIDAC [facility] PRN Reason: Protocol Stop: 09/17/17 11:31 Last Admin: 03/22/17 08:41 Dose: Not Given Lorazepam (Ativan) 0.5 mg IVP BID PRN PRN Reason: Anxiety Stop: 09/17/17 17:15 Last Admin: 03/20/17 02:32 Dose: 0.5 mg Naloxone HCl (Narcan) 0.4 mg IVP Q2MIN PRN PRN Reason: Opioid Reversal Stop: 09/17/17 05:03 Oseltamivir Phosphate (Tamiflu) 30 mg PO DAILY [facility] Stop: 03/23/17 10:00 Last Admin: 03/22/17 09:14 Dose: 30 mg - Imaging and Cardiology Echo: pending - EKG Interpretation EKG results cardiology: personally reviewed, other (12 hr tele AVG HR 90, frequent ectopy) Consult Discharge Plan - Plan Additional Instructions: Follow up with senior care PCP finish the antibiotics to completion follow-up chest x-ray ordered for 4 weeks return to the hospital should you develop fever, chills, increased shortness of breath Referrals: NONE,PCP [Primary Care Provider] - Prescriptions: Cefuroxime PO [Ceftin] 250 mg PO Q12HR #14 tablet Azithromycin [Zithromax] 250 mg PO Q24H #2 tablet Oseltamivir Phosphate [Tamiflu] 30 mg PO DAILY #3 capsule <Surjit Giagn - Last Filed: 03/22/17 18:08> Date of Encounter: 03/22/17 Time of Encounter: 17:25 - Attending Attestation I have personally performed a face to face evaluation on this patient. I have reviewed and agree with the care plan. History and Exam by me shows: CC: fever, chills Pt initially admitted with new complaints of fatigue, increased confusion, urinary frequentcy. She was found to have a UTI, acute on chronic renal failure , and pneumonia. She recovered with medical tx, however preparing to go home yesterday complained of chest pain. She cannot recall chest pain yesterday, or ever having chest pain. She is resting comfortably, PE: agree with above. Pt is orientated x 2 IMP: 1. Elevated troponin: pt has elevated troponins 0.16, 0.14, on admission, 0.72 and 0.68 last twenty four hours. Pt is not a candidate for invasive strategy, will maximize medical tx. She has new EKG changes, with inferolateral ST depression, will continue to monitor. 2. CAD - severe triple vessel CAD, post CABG. 3. Pneumonia -resolving on medical tx 4. Dementia - pt is pleasently confused. Assessment and Plan Discussion w patient/family: The assessment and plan as outlined above was discussed with the patient and/or family members who expressed understanding and agreement. All questions were answered. Thank you for involving us in the care of your patient. Please call with any questions. History of Present Illness History of present illness: Ms. Howard is a 87 year old female All Systems Review: A 10-system review of systems was performed and is negative for pertinent findings except as documented above in the HPI. Physical Examination Vital Signs, Last 4 Hours Temp Pulse Resp BP Pulse Ox 03/22/17 16:48 97.5 F L 98 16 143/66 97 Results 03/22/17 08:36 03/22/17 08:36 Lab Results 03/22/17 03/22/17 03/22/17 04:12 08:36 08:36 WBC 7.1 Hgb 11.7 Hct 37.4 Plt Count 246 Sodium 151 H Potassium 3.6 Chloride 113 H Carbon Dioxide 29 BUN 23 Creatinine 1.41 H Glucose 157 H Calcium 8.7 Troponin I 0.68 H*
[2017-03-22] MEDS: Azithromycin 250 MG TABLET PO SCH (11:56)
[2017-03-22] MEDS: Furosemide 40 MG TABLET PO SCH (11:56)
[2017-03-22] MEDS: Isosorbide MONOnitrate (24 HR) 30 MG TAB.ER.24H PO SCH (14:42)
[2017-03-22] MEDS: Famotidine 20 MG TABLET PO SCH (17:15)
[2017-03-22] MEDS: Insulin DETEMIR 100 UNIT/ML X5UNITS SQ SCH (22:15)
[2017-03-23] MEDS: Ipratropium/Albuterol Neb 3 ML IH SCH ×3 (04:23→11:34)
[2017-03-23 05:37] LABS: Calcium 8.8 mg/dL (8.6-10.3)
[2017-03-23] MEDS: *HR* Heparin 5,000 UNIT/ML VIAL SQ SCH (06:17)
[2017-03-23] MEDS: Budesonide/Formoterol 80/4.5 MDI IH SCH (07:25)
--- NOTE | 2017-03-23 09:26 | Internal Med Progress Note ---
<Rosy Slaughter - Last Filed: 03/23/17 09:23> Date of Encounter: 03/23/17 Time of Encounter: 09:24 - Assessment and plan (1) HCAP (healthcare-associated pneumonia) Current Visit: Yes Status: Acute Assessment and plan: Healthcare associated pneumonia. Patient presented from [facility]. CXR demonstrated small left pleural effusion, mild diffuse bilateral interstitial opacities that may be atypical pneumonia or edema WBC WNL 98% on 3L patient reports improvement in dyspnea no wheezes appreciated on physical exam Patient on azithromycin and Rocephin day day 5 Supplemental oxygen as needed (2) Chest pain Current Visit: No Status: Acute Assessment and plan: 03/22/2017: Cardiology discussed with the patient who preferred medical management when LHC was discussed. Imdur 30mg daily added. Echo: Technically sub-optimal due to poor echocardiographic windows. LVEF 60%. Not all LV segments were well visualized, but overall LVEF appears normal.Atypical septal motion consistent with a postoperative septum/BBB. Normal LV chamber size. Asymmetric hypertrophy of the basal septum. No LVOT obstruction. Mild left ventricular diastolic dysfunction. Grossly normal right ventricular structure and function. No evidence of pulmonary hypertension. No obvious significant valvular dysfunction. Plan cardiology consulted and recommendations appreciated will discharge today continuing the newly added Imdur 03/21/2017 Yesterday just prior to discharge the patient reported she was having chest pain. An EKG was then ordered and showed ST depression in lateral leads. Troponin was ordered and showed in increase from 0.15 two days prior and now is 0.72. Cardiology was consulted and requested an echo be ordered, troponin for next day, and they would see patient. It was discussed that the patient had not had her coreg in 2 days due to altered mental status and refusing to eat/ drink and take her oral medications. So in the place of Coreg she had been receiving IV Lopressor. Yesterday before discharge she was alert and oriented to person and at baseline for mental capacity. She was able to eat and that evening was given her coreg. Cardiology believed that the new findings were due to not receiving her beta yasir since she were not take it. Code status was discussed with the patient's family the day she arrived however they were adamant to keep her full code. So the discharge was canceled. Qualifiers: Ischemic chest pain type: unstable angina pectoris Qualified Code(s): I20.0 - Unstable angina (3) UTI (urinary tract infection) Current Visit: Yes Status: Acute Assessment and plan: Urine culture 03/14/2017 grew E. coli sensitive to ceftriaxone Urinalysis: nitrite and esterase positive Patient on Rocephin day 5 Qualifiers: Urinary tract infection type: acute cystitis Hematuria presence: without hematuria Qualified Code(s): N30.00 - Acute cystitis without hematuria (4) Metabolic encephalopathy Current Visit: Yes Status: Acute Assessment and plan: Patient was sleeping upon exam but was awakened to answer questions morning. Patient admitted with metabolic encephalopathy thought to be induced by UTI, pneumonia, and hypernatremia superimposed on baseline dementia CXR demonstrated small left pleural effusion, mild diffuse bilateral interstitial opacities that may be atypical pneumonia or edema WBC WNL sodium was 158 on admission, and now [address] demonstrated no acute cranial abnormality blood cultures are negative to date Urinalysis: nitrite and esterase positive (5) Influenza A Current Visit: Yes Status: Acute Assessment and plan: The patient is a resident of [facility] and was prophylactically started on Tamiflu at [facility] due to multiple residents in her [place] testing positive for influenza. Influenza A positive Continue Tamiflu 1 more days supplemental oxygen is needed (6) Acute kidney injury Current Visit: Yes Status: Acute Assessment and plan: Patient presented with NATHALY most likely due to dehydration from decreased oral intake. Patient has CKD creatinine baseline 1.3- 1.5 Creatinine improved 1.42 (she is at baseline creatinine) Avoid nephrotoxic agents monitor creatinine patients received IVF encourage oral hydration (7) COPD (chronic obstructive pulmonary disease) Current Visit: No Status: Chronic Assessment and plan: History of COPD. Not in exacerbation 98% oxygen saturation on 3 L continue home Symbicort supplemental oxygen is needed Duonebs every 4 hours Qualifiers: COPD type: unspecified COPD Qualified Code(s): J44.9 - Chronic obstructive pulmonary disease, unspecified (8) Diabetes Current Visit: No Status: Chronic Assessment and plan: History of diabetes taking insulin glucose 139 Levemir 10 units HS low-dose sliding scale insulin HS low dose sliding scale insulin TIDAC glucose checks ACHS Qualifiers: Diabetes mellitus type: type 2 Diabetes mellitus complication status: without complication Diabetes mellitus group home 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 BP stable continue Coreg continue Lasix 20mg Qualifiers: Hypertension type: essential hypertension Qualified Code(s): I10 - Essential (primary) hypertension (10) Dementia Current Visit: No Status: Chronic Assessment and plan: Patient with sleeping upon examination but was awakened to answer questions. She reported that she did not have any pain or shortness of breath. According to her family she has Dementia not currently taking medication for it. Ashlee reports that at baseline patient is able to recognize family and have conversations however she does forget each visit at the next visit. Patient resides in a [facility]. PT/OT state patient is at baseline for mobility and does not require further PT/ OT speech recommend pureed foods when patient is wide awake Qualifiers: Dementia type: unspecified type Dementia behavioral disturbance: without behavioral disturbance Qualified Code(s): F03.90 - Unspecified dementia without behavioral disturbance (11) DVT prophylaxis Current Visit: No Status: Acute Assessment and plan: Heparin sq - Subjective Interval history: Patient is resting comfortably in bed this morning. She was asleep but was awakened and reported she have any pain shortness of breath. - Constitutional Vitals: Temp Pulse Resp BP Pulse Ox 97.2 F L 87 16 150/55 98 03/23/17 07:02 03/23/17 07:02 03/23/17 07:56 03/23/17 07:56 03/23/17 07:56 General appearance: Present: cooperative, pleasant, no acute distress, answers questions appropriately Exam: Gen.: Vitals noted. No acute distress. Sleepy HEENT: oropharynx clear, Normocephalic, atraumatic Neck: Supple. No adenopathy. Cardiac: RRR, no murmur, +S1/S2 Pulmonary: CTA bilaterally, no wheezes, rales or rhonchi, equal chest expansion Abdomen: soft, nontender, Bowel sounds noted, no guarding MSK: ROM intact, no joint swelling noted Extremities: no BLE edema, nontender calf, no cyanosis or clubbing Psych: Appropriate mood and behavior Internal Medicine: Result - Labs CBC & Chem 7: 03/22/17 08:36 03/23/17 04:13 Labs: BMP 03/23/17 04:13 Sodium 148 H Potassium 4.0 Chloride 111 H Carbon Dioxide 26 BUN 25 H Creatinine 1.42 H Glucose 139 H Calcium 8.8 - Impressions Impressions Echocardiogram 03/22/17 16:48 Impressions: Technically sub-optimal due to poor echocardiographic windows. LVEF 60%. Not all LV segments were well visualized, but overall LVEF appears normal. Atypical septal motion consistent with a postoperative septum/BBB. Normal LV chamber size. Asymmetric hypertrophy of the basal septum. No LVOT obstruction. Mild left ventricular diastolic dysfunction. Grossly normal right ventricular structure and function. No evidence of pulmonary hypertension. No obvious significant valvular dysfunction. Findings: Study Quality * Technically sub-optimal due to poor echocardiographic windows. ECG Findings * Sinus rhythm with BBB. Left Ventricle * LVEF 60%. Not all LV segments were well visualized, but overall LVEF appears normal. * Normal LV chamber size. * Asymmetric hypertrophy of the basal septum. No LVOT obstruction. * Mild left ventricular diastolic dysfunction. Right Ventricle * Grossly normal right ventricular structure and function. Left Atrium * Moderately dilated left atrium. Right Atrium * Normal right atrial size. Aortic Valve * Aortic valve not well visualized. * No aortic regurgitation. * No aortic stenosis. Mitral Valve * Mild to moderate mitral annular calcification. * No mitral regurgitation. * No mitral stenosis. Tricuspid Valve * Grossly normal tricuspid valve structure and function. * Trace tricuspid regurgitation. * No evidence of pulmonary hypertension. Pulmonic Valve * Pulmonic valve is not well visualized. Aorta * Normally sized aortic root. Pericardium * The pericardium appears normal. IVC * The IVC is not well evaluated. Pulmonary Artery * Pulmonary artery not well visualized. Consult Discharge Plan - Plan Instructions: Cefuroxime (By mouth), Azithromycin (By mouth), Oseltamivir (By mouth), Urinary Tract Infection in Women (DC) Additional Instructions: Follow up with [facility] PCP finish the antibiotics to completion follow-up chest x-ray ordered for 4 weeks return to the hospital should you develop fever, chills, increased shortness of breath Referrals: NONE,PCP [Primary Care Provider] - (Patient will follow up with F pcp) Prescriptions: Cefuroxime PO [Ceftin] 250 mg PO Q12HR #10 tablet Azithromycin [Zithromax] 250 mg PO Q24H #2 tablet Isosorbide MONOnitrate (24 HR) [Imdur] 30 mg PO DAILY #30 tab.er.24h Oseltamivir Phosphate [Tamiflu] 30 mg PO DAILY #1 capsule <Alverto Waterman - Last Filed: 03/23/17 14:39> Date of Encounter: 03/23/17 - Constitutional Vitals: Temp Pulse Resp BP Pulse Ox 98.1 F 76 14 151/76 100 03/23/17 11:44 03/23/17 11:44 03/23/17 11:44 03/23/17 11:44 03/23/17 11:44 Internal Medicine: Result - Labs CBC & Chem 7: 03/22/17 08:36 03/23/17 04:13 Labs: BMP 03/23/17 04:13 Sodium 148 H Potassium 4.0 Chloride 111 H Carbon Dioxide 26 BUN 25 H Creatinine 1.42 H Glucose 139 H Calcium 8.8 - Attending Attestation I personally interviewed and examined this patient. I agree with all the findings, assessment and plan of Dr. Slaughter, internal medicine resident. Cardiology input noted, medical management, no heart catheterization. Patient otherwise is improved. She continues on azithromycin and will be transitioned to Ceftin for her pneumonia to complete a 7 day course. She is chest pain is resolved. Retracted infection is treated with antibiotics and will respond to Ceftin. Her encephalopathy has improved, was felt to be multifactorial in nature and she completes her Tamiflu for influenza infection today. Renal function has improved somewhat. Likely now at baseline. Anticipate patient be discharged later today if arrangements can be made.
[2017-03-23] MEDS: Furosemide 40 MG TABLET PO SCH (09:51)
[2017-03-23] MEDS: cefTRIAXone 1,000 MG in Water for inj. (sterile) 20 ML 10 ML IVP SCH (09:51)
[2017-03-23] MEDS: Aspirin 81 MG TAB.CHEW PO SCH (09:51)
[2017-03-23] MEDS: Insulin LISPRO 300 UNITS/3 ML VIAL SQ SCH ×2 (09:51→11:50)
[2017-03-23] MEDS: Famotidine 20 MG TABLET PO SCH (09:51)
[2017-03-23] MEDS: Oseltamivir Phosphate 30 MG CAPSULE PO SCH (09:51)
[2017-03-23] MEDS: Isosorbide MONOnitrate (24 HR) 30 MG TAB.ER.24H PO SCH (09:51)
[2017-03-23 11:48] VITALS: BP 151/76
[2017-03-23] MEDS: Azithromycin 250 MG TABLET PO SCH (11:50)
--- NOTE | 2017-03-23 14:05 | Electrocardiograph Report ---
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
--- NOTE | 2017-03-23 16:13 | Electrocardiograph Report ---
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
== END 2017-03-23 15:00 | DRG 193 ==
LOC: 2ANU 15:16 → EMEROO 15:16 → 2ANU 21:00 → SUATTDRO 03-18 08:21
PROVIDERS: ADMIT Hospitalist; ATTEND Internal Medicine